=== PATIENT | male | born 2000 | race Caucasian/White ===

== ENCOUNTER → 2021-02-26 08:30 | Outpatient (BNVA) | payer OTHER, SELFPAY | PROVIDERS: Visit Provider Physician Assistant Medical | DX: S61.412A Laceration without foreign body of left hand, initial encounter (principal); W26.9XXA Contact with unspecified sharp object(s), initial encounter | CPT/HCPCS: 12001; 99203 ==

== ENCOUNTER → 2021-02-28 10:32 | Outpatient (BNVA) | payer OTHER, SELFPAY | PROVIDERS: Visit Provider Physician Assistant Medical | DX: S61.412A Laceration without foreign body of left hand, initial encounter (principal); W26.0XXA Contact with knife, initial encounter | CPT/HCPCS: 99213 ==

== ENCOUNTER → 2021-03-05 08:20 | Outpatient (BNVA) | payer OTHER, SELFPAY | PROVIDERS: Visit Provider Physician Assistant Medical | DX: S61.412A Laceration without foreign body of left hand, initial encounter (principal); W26.9XXA Contact with unspecified sharp object(s), initial encounter; Z48.02 Encounter for removal of sutures | CPT/HCPCS: 99212; 99213 ==

== ENCOUNTER 2023-09-17 12:52 | Outpatient (AMB) | payer OTHER, SELFPAY ==
--- NOTE | 2023-09-17 13:03 | MHC.PC.OV ---
Vital Signs 09/17/23 13:04 Height 5 ft 7 in Weight 231 lb 6 oz BMI 36.2 BP 124/82 Blood Pressure Location Lt brachial Position Sitting Pulse 92 Pulse Source Pulse Oximeter Pulse Oximetry (%) 99 Oxygen Delivery Method Room Air Intake Visit Reasons: New patient-Requesting physical Intake Note: Pt is here to est care Allergies No Known Allergies Allergy (Verified 09/17/23 13:06) Medication List - Last Reconciled 09/17/23 by FLORI Greer epinephrine 1 mg IM DAILY Tobacco use date assessed: 09/17/23 Dental Screening Dental Screen Date: 09/17/23 Did you have a dental visit in the last 12 months?: Yes Did you have a dental problem in the last 6 months where you did not have access to dental care?: No Was dental information given to patient?: Patient has dentist HPI New patient-Requesting physical HPI Details New pt is here for a PE. Will order labs. Pt c/o increased fatigue. He reports not sleeping well at night. ? sleep apnea. Will refer for sleep study. [facility] Family History Maternal Uncle Substance use disorder Paternal Uncle Substance use disorder Social History Housing: House Patient Tobacco Use Status: Former Tobacco user Quit Date: quit 2 years ago e-Cigarette/Vaping Use: Former Use Second Hand Smoke Exposure: No service: No Current occupational status: employed Current occupation: [employer] Current occupational exposures/hazards: No Cognitive needs: No Hearing needs: No Vision needs: No Questionnaire PHQ-9 Over the last 2 weeks, how often have you been bothered by any of the following problems? 1. Little interest or pleasure in doing things: not at all 2. Feeling down, depressed, or hopeless: not at all 3. Trouble falling or staying asleep, or sleeping too much: not at all 4. Feeling tired or having little energy: several days 5. Poor appetite or overeating: not at all 6. Feeling bad about yourself - or that you are a failure or have let yourself or your family down: not at all 7. Trouble concentrating on things, such as reading the newspaper or watching television: not at all 8. Moving or speaking so slowly that other people could have noticed. Or the opposite - being so fidgety or restless that you have been moving around a lot more than usual: not at all 9. Thoughts that you would be better off or of hurting yourself in some way: not at all Total score: 1 Depression Screening Interpretation: Negative Depression Screening Done: Yes 82669 - PHQ-9 Billing: Yes Source: Developed by Drs. Moses Vera, Rupal Edge, Kai Ribera and colleagues, with an educational stephie from [employer]. Thrive Questionnaire Date Thrive assessed: 09/17/23 I am a: Patient What is your living situation today?: I have a steady place to live Within the past 12 months, did the food you bought not last and you didn't have the money to get more?: Never true Within the past 12 months, did you worry whether your food would run out before you got money to buy more?: Never true Do you have trouble paying for medicines?: No Do you have trouble getting transportation to medical appointments?: No Do you have trouble paying your heating and electricity bill?: No Do you have trouble taking care of your child, family member or friend?: No Do you have trouble with day-to-day activities such as bathing, preparing meals, shopping, managing finances, etc.?: No Are you currently unemployed and looking for a job?: No Are you interested in more education?: No Currently or been in a relationship where the following occur: no concerns reported THRIVE Score: 0 AUDIT C Alcohol Use Questionnaire (AUDIT-C) 1. How often do you have a drink containing alcohol?: Monthly or less 2. How many drinks containing alcohol do you have on a typical day when you are drinking?: 1 or 2 3. How often do you have six or more drinks on one occasion?: Never Total Score: 1 DYLON-7 AMB Questionnaire DYLON-7 Date DYLON - 7 assessed: 09/17/23 Feeling nervous, anxious, or on edge: 0 = Not at all Not being able to stop or control worryin = Not at all Worrying too much about different things: 0 = Not at all Trouble relaxin = Not at all Being so restless that it is hard to sit still: 0 = Not at all Becoming easily annoyed or irritable: 0 = Not at all Feeling afraid as if something awful might happen: 0 = Not at all Total DYLON-7 score (0-4 normal; 5-9 mild; 10-14 moderate; 15-21 severe): 0 Source: Developed by Drs. Moses Vera, Rupal Edge, Kai Ribera and colleagues, with an educational stephie from [employer]. Review of Systems Const Denies chills and Denies fever(s) Eyes Denies blurry vision ENT Denies vertigo, Denies dizziness and Denies sore throat Card Denies chest pain at rest, Denies chest pain with activity, Denies diaphoresis, Denies dyspnea and Denies dyspnea on exertion Resp Denies cough, Denies dyspnea, Denies dyspnea on exertion and Denies wheezing GI Denies abdominal pain, Denies melena, Denies hematochezia, Denies constipation, Denies diarrhea and Denies loose stools Denies hematuria Musc Denies numbness and Denies tingling Skin/Breast Denies lesions Neuro Denies vertigo, Denies dizziness, Denies numbness and Denies tingling Psych Denies anxiety, Denies depression, Denies homicidal ideation, Denies suicidal ideation and Denies other (substance abuse) Aller/Immun Denies wheezing Physical exam (Primary Care) Vital Signs: Last Vital Signs Pulse 92 09/17/23 13:04 BP 124/82 09/17/23 13:04 Pulse Ox 99 09/17/23 13:04 Oxygen Delivery Method Room Air 09/17/23 13:04 BMI result Body Mass Index 36.2 Tobacco/Smoking Status: Tobacco use Status Tobacco use date assessed 09/17/23 09/17/23 13:10 Patient Tobacco Use Status Former Tobacco user 09/17/23 13:10 e-Cigarette/Vaping Use Former Use 09/17/23 13:10 Depression Screening Interpretation: Negative Currently or been in a relationship where the following occur: no concerns reported Const General: cooperative Nutritional Appearance: obese Orientation/consciousness: patient oriented x3 HENMT Head: Yes normal to inspection, Yes normocephalic and Yes atraumatic Ears: TM's normal bilaterally Eyes General: appearance normal, both eyes and all related structures Alignment and Position: alignment normal and position normal Neck Neck: Yes normal visual inspection and Yes no lymphadenopathy Thyroid: Thyroid normal Resp Effort & Inspection: normal respiratory effort Auscultation: clear to auscultation bilaterally Cardio Rate: regular rate Rhythm: regular rhythm Heart sounds: S1 normal heart sound present, S2 normal heart sound present and no murmurs GI Palpation (GI): Soft to palpation and nontender Auscultation: normal bowel sounds Male General Exam: Yes normal external exam Penis: normal penis Scrotum: scrotum normal, testes descended bilaterally and no inguinal hernias Testes: no testicular mass Skin Rashes: no rashes Neuro General: patient oriented x3, moves all extremities, no focal motor deficits and deep tendon reflexes 2+ bilaterally Romberg Test: Negative Psych Appearance: grossly normal Mental Status: mental status grossly normal Speech and movement: Normal speech and movement present Affect: normal affect Attitude: cooperative Thought process: Normal thought process present Thought content: Normal thought content present Insight: Good insight present (Psych) Judgement: Good judgement present (Psych) Assessment and Plan Assessment & Plan (1) Physical exam: Code(s): Z00.00 - Encounter for general adult medical examination without abnormal findings Plan: Labs ordered (2) Fatigue: Code(s): R53.83 - Other fatigue Plan: labs ordered, referred to sleep medicine Plan The patient agreed to the use of a district medical examiner for this encounter. Scribed for FLORI Godinez by Mari Pacheco district medical examiner, on 09/17/2023 at 13:10 EST. Orders: Orders Complete Blood Count Auto Diff Today Z00.00 - Encounter for general adult medical examination without abnormal findings TSH reflex Free T4 Today Z00.00 - Encounter for general adult medical examination without abnormal findings UA CC w/rflx Micro + Cult Today Z00.00 - Encounter for general adult medical examination without abnormal findings Comprehensive [place]. Panel Fast Today Z00.00 - Encounter for general adult medical examination without abnormal findings Lipid Panel Today Z00.00 - Encounter for general adult medical examination without abnormal findings Referrals Sleep Medicine Referral R53.83 - Other fatigue Coding Level of Care Code New Pt Prev Care 18-39yr([id number] Diagnoses Physical exam Z00.00 Fatigue R53.83
[2023-09-17 13:04] VITALS: BP 124/82; PULSE 92; O2SAT 99; BMI 36.2
== END 2023-09-17 14:03 | disposition home or self-care (01) ==
PROVIDERS: PCP Nurse Practitioner Family; Visit Provider Nurse Practitioner Family
DX: Z00.00 Encounter for general adult medical examination without abnormal findings (principal); R53.83 Other fatigue
CPT/HCPCS: 99385

== ENCOUNTER 2023-09-29 06:07 | Outpatient (REF) | payer OTHER, SELFPAY ==
[2023-09-29 11:40] LABS: MANUAL DIFF FLAG NO
[2023-09-29 11:49] LABS: Basophils Absolute Auto 0.1 X10*3/uL (0.0-0.2); Basophils Percent Auto 0.8 % (0-2); Eosinophils Absolute Auto 0.3 X10*3/uL (0.0-0.4); Eosinophils Percent Auto 4.2 % (0-4); Hematocrit 45.8 % (42.0-52.0); Hemoglobin 15.7 g/dl (14.0-18.0); Imm Gran Abs Auto 0.02 X10*3/uL (0.00-0.03); Imm Gran Pct Auto 0.3 % (0.0-0.4); Lymphocytes Absolute Auto 1.8 X10*3/uL (1.2-4.9); Lymphocytes Percent Auto 23.9 % (20-40); Mean Corpuscular HGB Conc 34.3 g/dl (31.0-36.0); Mean Corpuscular Hemoglobin 28.7 pg (27.0-33.0); Mean Corpuscular Volume 83.7 fL (80.0-98.0); Mean Platelet Volume 9.8 fL (9.4-12.4); Monocytes Absolute Auto 0.8 X10*3/uL (0.1-1.2); Monocytes Percent Auto 9.7 % (2-11); Neutrophils Absolute Auto 4.7 x10*3/uL (2.0-8.3); Neutrophils Percent Auto 61.1 % (45-73); Platelet Count 330 X10*3/uL (160-400); Red Blood Count 5.47 X10*6/uL (4.60-5.80); Red Cell Distribution Width 12.7 % (11.0-16.0); White Blood Count 7.7 X10*3/uL (4.8-10.8)
[2023-09-29 11:53] LABS: Appearance Urine Clear; Color Urine Yellow; Glucose Urine UA Negative (Negative); Leukocyte Esterase Urine Negative (Negative); Nitrite Urine Negative (Negative); PH 5.5 (5.0-9.0); Urine Blood Negative (Negative); Urine Ketones Negative (Negative); Urine Protein Negative (Neg-Trace)
[2023-09-29 12:21] LABS: Alanine Aminotransferase 26 U/L (0-40); Albumin Level 4.6 g/dL (3.5-5.0); Alkaline Phosphatase 63 U/L (39-117); Anion Gap 12 (12-20); Aspartate Amino Transferase 25 U/L (5-37); Bilirubin Total 1.6 mg/dL (0.0-1.0); Blood Urea Nitrogen 15 mg/dL (9-16); Carbon Dioxide 27 mmol/L (22-29); Chloride 104 mmol/L (96-108); Cholesterol 193 mg/dL (<200); Estimated Glomerular Filt Rate > 60; Glucose Fasting 79 mg/dL (60-99); HDL Cholesterol 40 mg/dL (>40); LDL Cholesterol Calculated 132 mg/dL (<100); Potassium 3.9 mmol/L (3.3-5.1); Sodium 139 mmol/L (135-145); TSH reflex Free T4 1.44 uIU/mL (0.32-4.0); Total Protein 7.5 g/dL (6.5-8.0); Triglycerides 109 mg/dL (<150)
== END 2023-09-29 06:08 | disposition home or self-care (01) ==
LOC: HO.HMGCLDS 06:07
PROVIDERS: PCP Nurse Practitioner Family; Visit Provider Nurse Practitioner Family
DX: Z00.00 Encounter for general adult medical examination without abnormal findings (principal); Z13.6 Encounter for screening for cardiovascular disorders
CPT/HCPCS: 36415; 80053; 80061; 81003; 84443; 85025

== ENCOUNTER 2023-10-27 06:01 | Outpatient (REF) | payer OTHER, SELFPAY ==
[2023-10-27 13:20] LABS: Bilirubin Direct 0.3 mg/dL (0.0-0.5); Bilirubin Total 0.7 mg/dL (0.0-1.0)
== END 2023-10-27 06:02 | disposition home or self-care (01) ==
LOC: HO.HMGCLDS 06:01
PROVIDERS: PCP Nurse Practitioner Family; Visit Provider Nurse Practitioner Family
DX: R17 Unspecified jaundice (principal)
CPT/HCPCS: 36415; 82247; 82248

== ENCOUNTER 2023-12-31 08:26 | Outpatient (AMB) | payer OTHER, SELFPAY ==
[2023-12-31 08:38] VITALS: BP 122/78; PULSE 76; O2SAT 98; BMI 36.6
--- NOTE | 2023-12-31 08:38 | A.OFFVIS_ITS ---
Vital Signs 12/31/23 08:38 Height 5 ft 7 in Weight 234 lb BMI 36.6 BP 122/78 Blood Pressure Location Rt brachial Position Sitting Pulse 76 Pulse Source Pulse Oximeter Pulse Oximetry (%) 98 Oxygen Delivery Method Room Air Intake Visit Reasons: INP-Fatigue - CONF w/ address Intake Note: Patient presents for fatigue. patient presents for feeling fatigue has gained some weight not sure if that has anything to do with it,feeling tired all the time. Allergies No Known Allergies Allergy (Verified 12/31/23 08:41) Medication List - Last Reconciled 12/31/23 by SHIVANI Flores epinephrine 1 mg IM DAILY HPI Comments Details: 23-yr-old female presents for new in-person patient visit for sleep consultation. Patient reports difficulty with haze of sleepiness over the last 2 years, which is most noticeable when he is inactive. He states he has had gradual weight gain the last few years. He notes that when he had his wisdom teeth extracted, he need this to be done at a hospital d/t narrow airway. He wonders if neck tightness/posture can cause nocturnal resp s/s- such as sleeping w/ mouth open. 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 Sleep questionnaire: Have you ever been diagnosed with a sleep disorder? No Have you ever had a sleep study in the past? No Have you ever been treated for a sleep disorder? No Do you take medications for a sleep disorder? Has tried melatonin- but really does not have difficulty falling asleep. Do you have difficulty initiating sleep? No Do you have difficulty maintaining sleep? No. Do you wake up tired? yes Do you have daytime tiredness or fatigue? yes Do you easily fall asleep when inactive? yes Do you snore? yes Do you wake up gasping at night? no Do you have episodes of apneas? no Do you have episodes of nocturnal chest pain or dyspnea? can wake up SOB Do you have bruxism? No Do you have headaches upon awakening? No Do you wake up with dry mouth or throat? No Do you have GERD? certain foods. Do you have nocturia? No Do you have nocturnal leg cramps? No Do you have symptoms of restless legs? 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 Has talked in his sleep Do you have sleep paralysis? No Do you have drop attacks? No Do you ever have hypnogenic hallucinations? No. Only dreams when he takes a daytime nap, however during a nap he is aware of somethings going on around him but still dreaming- feels the dream occur toward the end of the nap. Hypersomnolence questionnaire: Have you ever had episodes of sudden weakness? No Have you ever had episodes of sudden weakness associated with strong emotions? No Sleep hygiene questionnaire: What is your usual sleep routine? Usual bedtime is at 9:30-10:30pm- sometimes earlier; Usual wake-up time is at 5-6am. Was sleeping longer on weekends- but this made him feel worse Do you take naps? Tries not too- feels worse when he naps Is your sleep environment cool, dark, and quiet? Yes Do you exercise? Golfs, weight training, walks Do you take caffeine or other stimulants? 4 cups of coffee and energy drink at times- latest intake 4pm- smaller cup of coffee. Do you use electronics in bed? May use his phone- but will fall asleep after using it or while using his phone. 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 [facility] Surgical History (Updated 12/31/23 @ 08:42 by EFREN Zhang) [place] teeth removed Family History Maternal Uncle Substance use disorder Paternal Uncle Substance use disorder Social History Housing: House Patient Tobacco Use Status: Former Tobacco user e-Cigarette/Vaping Use: Former Use Second Hand Smoke Exposure: No service: No Current occupational status: employed Current occupation: [employer] Current occupational exposures/hazards: No Cognitive needs: No Hearing needs: No Vision needs: No Physical Exam Vital Signs: Last Vital Signs Pulse 76 12/31/23 08:38 BP 122/78 12/31/23 08:38 Pulse Ox 98 12/31/23 08:38 Oxygen Delivery Method Room Air 12/31/23 08:38 BMI result Body Mass Index 36.6 Const General: no acute distress Orientation/consciousness: patient oriented x3 HEENT Other: Mallampati stage 3-4 Resp Effort & Inspection: normal respiratory effort and able to speak in complete sentences Auscultation: clear to auscultation bilaterally Cardio Rate: regular rate Rhythm: regular rhythm Heart sounds: S1 normal heart sound present and S2 normal heart sound present Neuro Other: Bilateral cervical tightness General: patient oriented x3 Psych Mental Status: mental status grossly normal Speech and movement: Clear speech present Attitude: cooperative Assessment & Plan Assessment & Plan (1) Excessive daytime sleepiness: Code(s): G47.19 - Other hypersomnia Category: Medical (2) Snoring: Code(s): R06.83 - Snoring Category: Medical (3) Sleep difficulties: Code(s): G47.9 - Sleep disorder, unspecified Category: Medical (4) Muscle spasm: Code(s): M62.838 - Other muscle spasm Category: Medical Plan Pt is advised to undergo sleep study to assess for sleep apnea: HST. Check labs for common etiologies of fatigue, sleepiness, and muscle spasm/tightness. Reviewed general tips to optimize sleep hygiene and sleep quality. Increase stretching/ROM and core/posture exercises- consider trying yoga or pilates type exercises in addition to his strength training exercises. Will f/u with pt after study to discuss results and appropriate treatment options. Pt to call with any worsening concerns or questions. Pt seen in c/w Dr Iwona Balderas. Orders: Orders TSH reflex Free T4 Today G47.19 - Other hypersomnia, M62.838 - Other muscle spasm, R53.83 - Other fatigue Vitamin B12 and Folate Today G47.19 - Other hypersomnia, G47.9 - Sleep disorder, unspecified, M62.838 - Other muscle spasm, R06.83 - Snoring, R53.83 - Other fatigue Vitamin D 25-OH (D2 and D3) Today G47.19 - Other hypersomnia, G47.9 - Sleep disorder, unspecified, M62.838 - Other muscle spasm, R06.83 - Snoring, R53.83 - Other fatigue RT home sleep study Today G47.19 - Other hypersomnia, G47.9 - Sleep disorder, unspecified, M62.838 - Other muscle spasm, R06.83 - Snoring, R53.83 - Other fatigue Ferritin Today G47.19 - Other hypersomnia, G47.9 - Sleep disorder, unspecified, M62.838 - Other muscle spasm, R06.83 - Snoring, R53.83 - Other fatigue Coding Level of Care Code New Pt Level 4 (97528) Diagnoses Excessive daytime sleepiness G47.19 Snoring R06.83 Sleep difficulties G47.9 Muscle spasm M62.838 [place] Sleepiness Scale Questions Sitting and reading: moderate chance of dozing Watching TV: high chance of dozing Sitting inactive in a theater, movie etc.: moderate chance of dozing As a passenger in a car for an hour without break: moderate chance of dozing Lying down in the afternoon when circumstances permit: moderate chance of dozing Sitting and talking to someone: would never doze Sitting quietly after lunch without alcohol: moderate chance of dozing In a car, while stopped for a few minutes in the traffic: would never doze ESS < 10: normal, ESS > 12: pathologic: 13
== END 2023-12-31 09:30 | disposition home or self-care (01) ==
PROVIDERS: PCP Nurse Practitioner Family; Visit Provider Nurse Practitioner Family
DX: G47.19 Other hypersomnia (principal); R06.83 Snoring; G47.9 Sleep disorder, unspecified; M62.838 Other muscle spasm
CPT/HCPCS: 99204

== ENCOUNTER → 2023-12-31 08:26 | Outpatient (BNVA) | payer OTHER, SELFPAY | PROVIDERS: PCP Nurse Practitioner Family; Visit Provider Nurse Practitioner Family ==

== ENCOUNTER 2023-12-31 09:29 | Outpatient (REF) | payer OTHER, SELFPAY ==
[2023-12-31 18:12] LABS: Ferritin 223 ng/mL (20-250); TSH reflex Free T4 0.99 uIU/mL (0.32-4.0)
[2023-12-31 18:21] LABS: Folate 9.3 ng/mL (> or = 4.0); Vitamin B12 677 pg/mL (200-900)
[2024-01-05 13:12] LABS: Vitamin D 25-OH, D2 <4 ng/mL; Vitamin D 25-OH, D3 23 ng/mL; Vitamin D 25-OH, Total 23 ng/mL (30-100)
== END 2023-12-31 09:30 | disposition home or self-care (01) ==
LOC: HO.HKASLDS 09:29
PROVIDERS: Visit Provider Nurse Practitioner Family
DX: R53.83 Other fatigue (principal); G47.19 Other hypersomnia; G47.9 Sleep disorder, unspecified; R06.83 Snoring; M62.838 Other muscle spasm
CPT/HCPCS: 36415; 82306; 82607; 82728; 82746; 84443

== ENCOUNTER → 2024-01-11 12:51 | Outpatient (REF) | payer OTHER, SELFPAY | LOC: HO.SL 12:51 | PROVIDERS: PCP Nurse Practitioner Family; Visit Provider Nurse Practitioner Family | DX: Z13.89 Encounter for screening for other disorder (principal) ==

== ENCOUNTER 2024-07-29 08:31 | Outpatient (AMB) | payer OTHER, SELFPAY ==
[2024-07-29 08:37] VITALS: BP 122/72; PULSE 81; O2SAT 98; BMI 38.4
--- NOTE | 2024-07-29 08:37 | A.OFFVIS_ITS ---
Vital Signs 07/29/24 08:37 Height 5 ft 7 in Weight 245 lb 8 oz BMI 38.4 BP 122/72 Blood Pressure Location Rt brachial Position Sitting Pulse 81 Pulse Source Pulse Oximeter Pulse Oximetry (%) 98 Oxygen Delivery Method Room Air Intake Visit Reasons: 7 month f/u Accompanied by: Self / Same As Patient Allergies No Known Allergies Allergy (Verified 07/29/24 08:40) Medication List - Last Reconciled 07/29/24 by Terrance Regalado PA-C cholecalciferol (vitamin D3) 1,250 mcg PO QWEEK 14 weeks epinephrine 1 mg IM DAILY HPI Comments Details: 23-yr-old female presents for new in-person patient visit for sleep co nsultation. Patient reports difficulty with haze of sleepiness over the last 2 years, which is most noticeable when he is inactive. He states he has had gradual weight gain the last few years. He notes that when he had his wisdom teeth extracted, he need this to be done at a hospital d/t narrow airway. He wonders if neck tightness/posture can cause nocturnal resp s/s- such as sleeping w/ mouth open. 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 Sleep questionnaire: Have you ever been diagnosed with a sleep disorder? No Have you ever had a sleep study in the past? No Have you ever been treated for a sleep disorder? No Do you take medications for a sleep disorder? Has tried melatonin- but really does not have difficulty falling asleep. Do you have difficulty initiating sleep? No Do you have difficulty maintaining sleep? No. Do you wake up tired? yes Do you have daytime tiredness or fatigue? yes Do you easily fall asleep when inactive? yes Do you snore? yes Do you wake up gasping at night? no Do you have episodes of apneas? no Do you have episodes of nocturnal chest pain or dyspnea? can wake up SOB Do you have bruxism? No Do you have headaches upon awakening? No Do you wake up with dry mouth or throat? No Do you have GERD? certain foods, not food related, more random. Do you have nocturia? No Do you have nocturnal leg cramps? No Do you have symptoms of restless legs? 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 Has talked in his sleep Do you have sleep paralysis? No Do you have drop attacks? No Do you ever have hypnogenic hallucinations? No. Only dreams when he takes a daytime nap, Hypersomnolence questionnaire: Have you ever had episodes of sudden weakness associated with strong emotions? No Sleep hygiene questionnaire: What is your usual sleep routine? Usual bedtime is at 9:30-10:30pm- sometimes earlier; Usual wake-up time is at 5-6am. Was sleeping longer on weekends- but this made him feel worse, more tired. Do you take naps? Tries not too- feels worse when he naps Is your sleep environment cool, dark, and quiet? Yes Do you exercise? Golfs, weight training, walks Do you take caffeine or other stimulants? 2-6 cups of coffee and energy drink at times- last intake noon- smaller cup of coffee. Do you use electronics in bed? May use his phone- but will fall asleep after using it or while using his phone. What is your work schedule? 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 [facility] Surgical History [place] teeth removed Family History Maternal Uncle Substance use disorder Paternal Uncle Substance use disorder Social History Housing: House Patient Tobacco Use Status: Former Tobacco user e-Cigarette/Vaping Use: Former Use Second Hand Smoke Exposure: No service: No Current occupational status: employed Current occupation: [employer] Current occupational exposures/hazards: No Cognitive needs: No Hearing needs: No Vision needs: No Review of Systems Const All systems reviewed & are unremarkable except as noted in HPI and below ENT Reports Normal hearing present Neuro Reports Normal hearing present Physical Exam Vital Signs: Last Vital Signs Pulse 81 07/29/24 08:37 BP 122/72 07/29/24 08:37 Pulse Ox 98 07/29/24 08:37 Oxygen Delivery Method Room Air 07/29/24 08:37 BMI result Body Mass Index 38.4 Const General: cooperative, comfortable and no acute distress Nutritional Appearance: well nourished and overweight Orientation/consciousness: patient oriented x3 HEENT Face and sinus: Yes face symmetric Throat: Yes other ([place] score of 4) Eyes Pupils: Equal, round and reactive pupils present Neck Neck: Yes full ROM and Yes supple Resp Effort & Inspection: normal respiratory effort and able to speak in complete sentences Neuro General: patient oriented x3 and moves all extremities Cranial nerves: Yes CN's II-XII intact bilaterally, Yes Facial sensation int act/muscles of mastication intact, Yes Equal, round and reactive pupils present, Yes Normal accommodation reflex present, Yes Bilaterally intact EOM present, Yes Nystagmus not present, Yes Normal facial strength present, Yes Midline tongue present, Yes Normal hearing present, Yes Ability to bilaterally rotate head present and Yes Ability to bilaterally elevate shoulders present Cognition (Neuro): normal cognition Motor exam (neuro): 5/5 motor strength present throughout and Normal motor muscle tone present throughout Deep tendon reflexes (DTR's): Right triceps reflex intensity grade: 2+, Left triceps reflex intensity grade: 2+, Rt Biceps (C5, C6): 2+, Left biceps reflex intensity grade: 2+, Right brachioradialis reflex intensity grade: 2+, Left brachioradialis reflex intensity grade: 2+, Right patellar reflex intensity grade: 2+ and Left patellar reflex intensity grade: 2+ Psych Appearance: grossly normal Mental Status: mental status grossly normal Speech and movement: Normal speech and movement present Assessment & Plan Assessment & Plan (1) Fatigue: Code(s): R53.83 - Other fatigue Category: Medical Qualifiers: Fatigue type: chronic, unspecified Qualified Code(s): R53.82 - Chronic fatigue, unspecified (2) Sleep difficulties: Code(s): G47.9 - Sleep disorder, unspecified Category: Medical (3) Snoring: Code(s): R06.83 - Snoring Category: Medical Plan Snoring with Chronic and Excessive Daytime Fatigue Will send him for HST and evaluate Labs B12 and folate / VIT D and Thyroid Orders: Orders RT home sleep study Today G47.9 - Sleep disorder, unspecified, R53.83 - Other fatigue Vitamin B12 and Folate Today G47.9 - Sleep disorder, unspecified, R53.83 - Other fatigue Coding Level of Care Code Tele New Pt Level 3 (59552) Diagnoses Chronic fatigue R53.82 Fatigue type: chronic, unspecified Sleep difficulties G47.9 Snoring R06.83
--- OUTSIDE RECORDS SUMMARY | 2024-07-29 08:45 | XMS_ITS ---
Author Name [facility] Organization Unknown History of Medication Use Medication Directions Dispensed Refills Start Date End Date Stat cephalexin 500 mg capsule TAKE 1 CAPSULE BY MOUTH THREE TIMES A DAY DIRECTED TAKE 1 CAPSULE BY MOUTH THREE TIMES A DAY DIRECTED 01/10/2022 completed epinephrine 0.3 mg/0.3 mL injection, auto-injector epinephrine 0.3 mg/0.3 mL injection, auto-injector 01/10/2022 completed None recorded. (No additional sig information) 01/10/2022 completed Problems Problem Status Onset Date Problem Type Date of Resoluti on Source Obesity active 2017-10-08 ProblemAct CTHLPVP Allergic rhinitis active ProblemAct C THLPVP Learning difficulties active 2016-09-29 ProblemAct CTHLPVP
--- OUTSIDE RECORDS SUMMARY | 2024-07-29 08:45 | XMS_ITS | Data Portability ---
Author Organization [place] - [facility], [facility] Address [address] [place] [id number] Assessment Encounter Date Assessment Date Assessment LastModified by Organization Details LastModified Time 10/11/2018 10/11/2018 Healthy 18 year old. 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 Nl dev Learning disorder- doing fine in school mild seasonal allergies Inc BMI- disc healthy lifestyle at length jyunis Not available 10/03/2019 12:25:06 01/01/2021 01/01/2021 Healthy 20 year old. Nl dev Learning disorder- doing fine in school Inc BMI- disc healthy lifestyle at length- weight better- eating better and more active jyunis Not available 01/01/2021 09:29:45 01/02/2022 01/02/2022 bloody stool- likely hemmorroid- no signs of systemic symptoms. willl see if resolves next couple days. George to call on thursday to report Uri- Symptomatic care.?? Call if worse/ not improving or with any concerns jyunis Not available 01/02/2022 19:41:41 Plan of Treatment Reminders Order Date Submit Date Provider Last Modified By Organization Details Last Modified Time Details Appointments None recorded . Lab lipid panel, blood 018 10/13/19 18 [facility], [address] [place] [address], [phone], 8 10:08:58 glucose, QN [mass/vo lume], serum or plasma 018 10/13/19 18 [facility], [address] [place], [address], 8 18:20:02 ALT (alanine aminotra nsferase ), serum or plasma 018 10/13/19 18 [facility], [address], [place], [address], 8 18:20:01 CT + NG DNA, PCR, urine 019 10/12/19 19 [facility], [address] [place] [address], [phone], 9 11:42:07 CT + NG DNA, PCR, urine 020 10/03/19 20 [facility], [address], [place], [address], 0 13:38:18 CT + NG DNA, PCR, urine 021 01/02/20 21 [facility], [address] [place] [address], [phone], 1 10:24:04 Referral None recorded . Procedures None recorded . Surgeries None recorded . Imaging None recorded . Medication Orders None recorded . Patient TargetsNo targets recorded. Patient Instructions Encounter Date Encounter Id Patient Instructions Last Modified By Organization Details Last Modified Time 10/12/2017 [id number] patient health questionnaire modified for adolescents* Not available 10/12/2017 10:01:13 immunization: wh at you need to know Not available 10/12/2017 10:01:13 mom declines flu vaccine; life issues/balance/saf ety; george needs to embrace need for healthier eating and weight loss; hard thing to do and no easy solutions or tricks to accomplish Not available 10/12/2017 10:01:02 10/11/2018 [id number] Learning About H ow to Make Healthy Changes in Your Child's Diet jyunis Not available 10/11/2018 10:17:40 5210 program - 5 fruits & veggies jyunis Not available 10/11/2018 10:17:39 5210 program - 1 hour of exercise jyunis Not available 10/11/2018 10:17:39 patient health questionnaire depression assessment* jyunis Not available 10/11/2018 10:43:46 immunization: wh at you need to know jyunis Not available 10/11/2018 10:17:40 10/03/2019 [id number] program - 5 fruits & veggies jyunis Not available 10/03/2019 11:15:30 5210 program - 1 hour of exercise jyunis Not available 10/03/2019 11:15:30 patient health questionnaire depression assessment* ZHANE Not available 10/03/2019 11:20:19 immunization: wh at you need to know jyunis Not available 10/03/2019 11:15:30 01/01/2021 [id number] program - 5 fruits & veggies jyunis Not available 01/01/2021 09:35:00 5210 program - 1 hour of exercise jyunis Not available 01/01/2021 09:35:00 patient health questionnaire depression assessment* jyunis Not available 01/01/2021 09:35:00 immunization: wh at you need to know jyunis Not available 01/01/2021 09:35:00 01/02/2022 [id number] upper respirator y infection (cold): care instructions jyunis Not available 01/02/2022 19:42:09 Reason for Referral None Reported. Results Created Date Observation Date Name Description Value Unit Range Abnormal Flag Note LastModifiedBy Organization Detail LastModifiedTime 01/01/2021 patie nt healt h quest ionna lorena depre ssion asses sment * PHQ-9 negati ve Not Available [facility] [address] [place] [address], [phone], 01/01/2021 09:18:06 10/11/2018 patie nt healt h quest ionna lorena depre ssion asses sment * PHQ-9 negati ve Not Available [facility] [address] [place] [address], [place], [phone], 10/11/2018 09:39:09 10/12/2017 patie nt healt h quest jac carrillo modgeorgia ied for adole scent s* PHQ-9 negati ve Not Available [facility] [address] [place], [address], 10/12/2017 09:36:15 10/17/19 18 10/16/2017 ALT (omero ine amino trans feras e), serum or plasm a ALT 22 U/L (0-41) Not Available [facility] [address] [place], [address], 10/16/2017 18:20:01 10/17/19 18 10/16/2017 gluco se, QN [mass /volu me], serum or plasm a glucose 86 mg/dL (70-99 ) FASTI NG Not Available [facility] [address] [place], [address], 10/16/2017 18:20:02 10/17/19 18 10/16/2017 lipid panel , serum cholesterol, total 165 mg/dL (<170) Not Available [facility] [address] [place], [address], 10/16/2017 18:20:03 10/17/19 18 10/16/2017 lipid panel , serum triglyceride 197 mg/dL (<90) high Not Available [facility] [address] [place], [address], 10/16/2017 18:20:03 10/17/19 18 10/16/2017 lipid panel , serum HDL chol 35 mg/dL (>45) low Not Available [facility] [address] [place], [address], 10/16/2017 18:20:03 10/17/19 18 10/16/2017 lipid panel , serum LDL cholesterol, calculated 91 mg/dL (0-109 ) Not Available [facility] [address] [place], [address], 10/16/2017 18:20:03 10/17/19 18 10/16/2017 lipid panel , serum non HDL cholesterol (calc) 130 mg/dL (<120) high Not Available [facility] [address], [place], [address], 10/16/2017 18:20:03 10/12/19 19 10/12/2018 CT + NG DNA, PCR, urine urine chlamydia amp probe (neg) normal NEGAT SONIA No Chlam ydia Trach omati s RNA detec marcus in this patie nt's sampl e (REFE RENCE RANGE /NORM AL VALUE : NOT DETEC MARCUS) Note: This test uses trans cript ion- media marcus ampli ficat ion metho d to detec t rRNA from C. Trach omati s Not Available [facility] [address], [place], [address], 10/12/2018 13:45:25 10/12/19 19 10/12/2018 CT + NG DNA, PCR, urine urine GC amp probe (neg) normal NEGAT SONIA No Neiss eria Gonor rhoea e RNA detec marcus in this patie nt's sampl e (REFE RENCE RANGE /NORM AL VALUE : NOT DETEC MARCUS) NOTE: This test uses trans cript ion-m ediat ed ampli ficat ion metho d to detec t rRNA from N.Daniel orrho eae. A negat sonia resul t does not precl ude infec tion. In the case of a negat sonia urine resul t, testi ng of an endoc ervic al(fe male) or ureth ral (male ) speci men is recom edwin d if there is high clini damian suspi cion of infec tion. Due to very high sensi tivit y of Nucle ic Acid Ampli ficat ion Test, false posit sonia resul ts may occur . There fore, speci men handl ing is extre jarvis impor tant. In patie nts in whom the disea se is unlik elizabeth, addit ional sampl e for testi ng shoul d be consi dered after an initi al posit sonia resul t. The perfo rmanc e sherrill cteri stics of this test have not been evalu ated in child [place]. The Aptim a Combo 2 assay is not inten ded for the evalu ation of suspe cted sexua l abuse or for other medic o-leg al indic ation s. The order ing provi wesley shoul d asses s if the patie nt had conse nsual sex witho ut risk of sexua l abuse . [facility] if neede d. Conta ct phone numbe r [phone]. Thera peuti c failu re or succe ss canno t be deter mined with the Aptim a Combo 2 assay since nucle ic acid may persi st follo wing appro priat e antim icrob ial thera py. The Cente rs for Disea se Contr ol and Preve ntion ([facility]) recom mends confi rmato ry retes ting using cultu re or a diffe rent nucle ic acid ampli ficat ion test when posit sonia resul ts occur , if indic ated. Not Available [facility] [address], [place], [address], 10/12/2018 13:45:25 10/03/19 20 10/04/2019 CT + NG DNA, PCR, urine urine chlamydia amp probe (neg) normal NEGAT SONIA No Chlam ydia Trach omati s RNA detec marcus in this patie nt's sampl e (REFE RENCE RANGE /NORM AL VALUE : NOT DETEC MARCUS) Note: This test uses trans cript ion- media marcus ampli ficat ion metho d to detec t rRNA from C. Trach omati s Not Available [facility] [address], [place], [address], 10/04/2019 13:38:18 10/03/1910/04/2019 CT + NG DNA, PCR, urine urine GC amp probe (neg) normal NEGAT SONIA No Neiss eria Gonor rhoea e RNA detec marcus in this patie nt's sampl e (REFE RENCE RANGE /NORM AL VALUE : NOT DETEC MARCUS) NOTE: This test uses trans cript ion-m ediat ed ampli ficat ion metho d to detec t rRNA from N.Daniel orrho eae. A negat sonia resul t does not precl ude infec tion. In the case of a negat sonia urine resul t, testi ng of an endoc ervic al(fe male) or ureth ral (male ) speci men is recom edwin d if there is high clini damian suspi cion of infec tion. Due to very high sensi tivit y of Nucle ic Acid Ampli ficat ion Test, false posit sonia resul ts may occur . There fore, speci men handl ing is extre jarvis impor tant. In patie nts in whom the disea se is unlik elizabeth, addit ional sampl e for testi ng shoul d be consi dered after an initi al posit sonia resul t. The perfo rmanc e sherrill cteri stics of this test have not been evalu ated in [place]. The Aptim a Combo 2 assay is not inten ded for the evalu ation of suspe cted sexua l abuse or for other medic o-leg al indic ation s. The order ing provi wesley shoul d asses s if the patie nt had conse nsual sex witho ut risk of sexua l abuse . [facility] if neede d. Conta ct phone numbe r . Thera peuti c failu re or succe ss canno t be deter mined with the Aptim a Combo 2 assay since nucle ic acid may persi st follo wing appro priat e antim icrob ial thera py. The Cente rs for Disea se Contr ol and Preve ntion ([facility]) recom mends confi rmato ry retes ting using cultu re or a diffe rent nucle ic acid ampli ficat ion test when posit sonia resul ts occur , if indic ated. Not Available [facility] [address], [place], [address], 10/04/2019 13:38:18 10/03/19 20 10/03/2019 patie nt healt h quest ionna lorena depre ssion asses sment * PHQ-9 negati ve Not Available [facility] [address] [facility], [place], [address], 10/03/2019 10:57:39 01/02/20 21 01/02/2021 CT + NG DNA, PCR, urine urine chlamydia amp probe (neg) NEGAT SONIA No Chlam ydia Trach omati s RNA detec marcus in this patie nt's sampl e (REFE RENCE RANGE /NORM AL VALUE : NOT DETEC MARCUS) Note: This test uses trans cript ion- media marcus ampli ficat ion metho d to detec t rRNA from C. Trach omati s Not Available [facility] [address], [place], [address], 01/02/2021 08:21:55 01/02/20 21 01/02/2021 CT + NG DNA, PCR, urine urine GC amp probe (neg) NEGAT SONIA No Neiss eria Gonor rhoea e RNA detec marcus in this patie nt's sampl e (REFE RENCE RANGE /NORM AL VALUE : NOT DETEC MARCUS) NOTE: This test uses trans cript ion-m ediat ed ampli ficat ion metho d to detec t rRNA from N.Daniel orrho eae. A negat sonia resul t does not precl ude infec tion. In the case of a negat sonia urine resul t, testi ng of an endoc ervic al(fe male) or ureth ral (male ) speci men is recom edwin d if there is high clini damian suspi cion of infec tion. Due to very high sensi tivit y of Nucle ic Acid Ampli ficat ion Test, false posit sonia resul ts may occur . There fore, speci men handl ing is extre jarvis impor tant. In patie nts in whom the disea se is unlik elizabeth, addit ional sampl e for testi ng shoul d be consi dered after an initi al posit sonia resul t. The perfo rmanc e sherrill cteri stics of this test have not been evalu ated in [place]. The Aptim a Combo 2 assay is not inten ded for the evalu ation of suspe cted sexua l abuse or for other medic o-leg al indic ation s. The order ing provi wesley shoul d asses s if the patie nt had conse nsual sex witho ut risk of sexua l abuse . [facility] if neede d. Conta ct phone numbe r [phone]. Thera peuti c failu re or succe ss canno t be deter mined with the Aptim a Combo 2 assay since nucle ic acid may persi st follo wing appro priat e antim icrob ial thera py. The Cente rs for Disea se Contr ol and Preve ntion ([facility]) recom mends confi rmato ry retes ting using cultu re or a diffe rent nucle ic acid ampli ficat ion test when posit sonia resul ts occur , if indic ated. Not Available [facility] [address], [place], [address], 01/02/2021 08:21:55 01/02/20 21 01/01/2021 CT + NG DNA, PCR, urine Specimen Mikaela marcus in office Not Available [facility] [address] [place] [address], [address], 01/01/2021 09:18:07 Result Notes None recorded. Problems Name Problem SNOMED Code Status Onset Date Resolution Date Notes Provider Name and Address Organization Details Recorded Time Acne 22113670 Completed 10/12/2017 Juan keenan MA [facility] 8 09:50:56 Ankle pain 789150642 Completed 10/16/[address] [facility] 6 13:32:28 Learning difficulti es 450501041 Active 2016 Juan keenan MA [facility] 7 16:18:10 Obesity 509465589 Active [address] [facility] 8 11:02:08 Cellulitis 152901634 Completed 200810/07/2011 Not Available [facility] 3 03:01:32 Viral disease 32600065 Completed 200710/07/2011 Not Available [facility] 3 03:01:32 Eruption 986716656 Completed 200710/07/2011 Not Available [facility] 3 03:01:32 Abnormal weight gain 052821655 Completed 200810/08/[address] 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 Medical Equipment None Reported. Allergies No known drug allergies Medications Name Sig Start Date Stop Date Status Note LastModified by Organization Details LastModified Time ludent chw 1mg f active Not Available Not Available Not Available cephalexin joseline 250/5ml active Not Available Not Available Not Available cetirizine tab 10mg active Not Available Not Available Not Available tretinoin 0.025 % crea active Not Available Not Available Not Available multi-vit/f l chw 1mg active Not Available Not Available No t Available mupirocin oin 2% active Not Available Not Available Not Available amoxicillin 500 mg capsule active Not Available Not Available Not Available prednisone 10 mg tablet 4 tablets po q day for 2 days, 3 tablets po qd for 2 days, 2 tablets po qd for 2 days, 1 tablet po q day for 2 days 04/21 completed Not Available Not Available Not Available fluoride 1 mg (2.2 mg sodium fluoride) chewable tablet Take 1 tablet(s) every day by oral route. 2011 active Not Available Not Available Not Avai lable azithromyci n 250 mg tablet 10/02 completed Not Available Not Available Not Available hydrocodone 5 mg-acetamin ophen 325 mg tablet 10/02 completed Not Available Not Available Not Available tretinoin 0.025 % topical cream Apply by topical route daily. 04/21 completed Not Available Not Available Not Available prednisone 5 mg tablet 03/26 completed Not Available Not Available Not Available acetaminoph en 300 mg-codeine 30 mg tablet active Not Available Not Available Not Available adapalene 0.1 % topical cream Apply 1 applicati on every day by topical route. 09/29 completed Not Available Not Available Not Available cephalexin 500 mg capsule TAKE 1 CAPSULE BY MOUTH THREE TIMES A DAY DIRECTED active Not Available Not Available No t Available Multivitami ns With Fluoride 1 mg chewable tablet 1 po qd 2008 active Not Available Not Available Not Avai lable Tazorac 0.1 % topical gel 10/12 completed Not Available Not Available Not Available epinephrine 0.3 mg/0.3 mL injection, auto-inject or active Not Available Not Available Not Available ibuprofen 600 mg tablet 10/02 completed Not Available Not Available Not Available methylpredn isolone 4 mg tablets in a dose pack 10/02 completed Not Available Not Available Not Available hydrocortis one 2.5 % topical ointment Apply to the affected area(s) by topical route once or twice a day for 7-10 days 04/21 completed Not Available Not Available Not Available ketoconazol e 2 % topical cream APPLY TO AFFECTED AREA TWICE A DAY FOR 14 -21 DAYS 10/11 completed Not Available Not Available Not Available doxycycline hyclate 100 mg tablet 10/08 completed Not Available Not Available Not Available chlorhexidi ne gluconate 0.12 % mouthwash 10/02 completed Not Available Not Available Not Available clindamycin 1.2 % (1 % base)-benzo yl peroxide 5 % topical gel Apply 1 applicati on every day by topical route at bedtime. 10/08 completed Not Available Not Available Not Available Vitals Date Recorded Body height Body mass index (BMI) Percentile per age and sex Body mass index (BMI) Body weight Systolic blood pressure Diastolic blood pressure Provider Name and Address Organization Details Last Updated DateTime 0 170.18 cm 99 % 41 kg/m2 987865. 76 g 120 mm[Hg] 68 mm[Hg] Maile Calloway R.N. [facility] 0 11:03:05 Date Recorded Body height Body mass index (BMI) Percentile per age and sex Body mass index (BMI) Body weight Systolic blood pressure Diastolic blood pressure Provider Name and Address Organization Details Last Updated DateTime 1 170.18 cm 98 % 34.4 kg/m2 52841.8 8 g 122 mm[Hg] 76 mm[Hg] Edyta Mcclure R.N. [facility] 1 09:20:57 Date Recorded Body height Body mass index (BMI) Body weight Systolic blood pressure Diastolic blood pressure Provider Name and Address Organization Details Last Updated DateTime 10/12/2017 169.55 cm 36.2 kg/m2 770528.4 5 g 114 mm[Hg] 70 mm[Hg] Ely davies M.A. [facility] 8 09:39:37 Date Recorded Body height Body mass index (BMI) Percentile per age and sex Body mass index (BMI) Body weight Systolic blood pressure Diastolic blood pressure Provider Name and Address Organization Details Last Updated DateTime 9 170.18 cm 99 % 37 kg/m2 591975. 52 g 120 mm[Hg] 70 mm[Hg] Cuca ortiz C.M.A. [facility] 9 09:44:25 Social History Question Answer Notes LastModified by Organizat ion Details LastModified Time Tobacco Smoking Status Never Smoker Cain Paredes, 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 10/11/2018 Information not available 02/17/2019 Are You Passively Exposed To Smoke? No [email or web address] Information not available 10/23/2014 Sex: Unknown Functional Status None recorded. Mental Status None recorded. Family History Relationship Description Onset Age of this Age Resolved Age Notes LastModified by Organization Details LastModified Time Mother Malignant neoplastic disease previo usly record ed as Cancer [email or web address] Not available 10/23/2014 10:53:23 Mother Autoimmune disease previo usly record ed as Thyroi d or other Autoim mune Diseas es [email or web address] Not available 10/23/2014 10:53:23 Mother Hypercholest erolemia previo usly record ed as Elevat ed Choles terol [email or web address] Not available 10/23/2014 10:53:23 Paternal Grandfather Malignant neoplastic disease previo usly record ed as Brain Cancer [email or web address] Not available 10/23/2014 10:53:23 Paternal Grandmother Malignant neoplastic disease previo usly record ed as Breast Cancer [email or web address] Not available 10/23/2014 10:53:23 Maternal Grandfather Hypercholest erolemia previo usly record ed as Elevat ed Choles terol [email or web address] Not available 10/23/2014 10:53:23 Maternal Grandmother Hypercholest erolemia previo usly record ed as Elevat ed Choles terol [email or web address] Not available 10/23/2014 10:53:23 Brother Allergy Peanut & tree nuts [email or web address] Not available 10/23/2014 10:53:23 Brother Asthma [email or web address] Not available 10/23/2014 10:53:23 Sister Asthma [email or web address] Not available 10/23/2014 10:53:23 Sister Allergy Peanut & tree nuts [email or web address] Not available 10/23/2014 10:53:23 Father Asthma [email or web address] Not available 10/23/2014 10:53:23 Father Malignant neoplastic disease Melano ma [email or web address] Not available 10/23/2014 10:53:23 Notes:Updated 01/01/21 Medical History Condition Response DEVELOPMENTAL/ BEHAVIORAL PROBLEMS Y Immunizations Vaccine Type Date Status Note Provider Name and Address Organization Details Recorded Time Influenza, split virus, trivalent, PF 10/07/19 12 completed Not Available [facility] 08/13/2019 02:35:17 Novel [id number] 07/04/20 09 completed Not Available [facility] 08/13/2019 02:34:46 Tdap 10/20/19 13 completed Not Available [facility] 08/13/2019 02:33:46 meningococcal [id number] 10/20/19 13 completed Not Available [facility] 08/13/2019 02:33:32 MMR 01/08/20 02 completed Not Available [facility] 12/22/2022 14:53:22 IPV 04/15/20 02 completed Not Available [facility] 12/22/2022 14:53:22 DTaP 04/15/20 02 completed Not Available [facility] 12/22/2022 14:53:22 Hep B, unspecified formulation 11/13/19 01 completed Not Available [facility] 12/22/2022 14:53:22 DTaP 10/15/19 06 completed Not Available [facility] 12/22/2022 14:53:22 Hep B, unspecified formulation 10/11/19 01 completed Not Available [facility] 12/22/2022 14:53:22 varicella 04/15/20 02 completed Not Available [facility] 12/22/2022 14:53:22 Hep B, unspecified formulation 06/30/20 01 completed Not Available [facility] 12/22/2022 14:53:22 Hib, unspecified formulation 04/29/20 01 completed Not Available [facility] 12/22/2022 14:53:22 IPV 10/15/19 06 completed Not Available [facility] 12/22/2022 14:53:22 DTaP 04/29/20 01 completed Not Available [facility] [facility] 12/22/2022 14:53:22 IPV 12/11/19 01 completed Not Available [facility] 12/22/2022 14:53:22 Hib, unspecified formulation 01/08/20 02 completed Not Available [facility] 12/22/2022 14:53:22 Hib, unspecified formulation 02/05/20 01 completed Not Available [facility] 12/22/2022 14:53:22 Hib, unspecified formulation 12/11/19 01 completed Not Available [facility] 12/22/2022 14:53:22 IPV 02/05/20 01 completed Not Available [facility] 12/22/2022 14:53:22 DTaP 02/05/20 01 completed Not Available [facility] 12/22/2022 14:53:22 MMR 10/05/19 05 completed Not Available [facility] 12/22/2022 14:53:22 DTaP 12/11/19 01 completed Not Available [facility] 12/22/2022 14:53:22 pneumococcal conjugate PCV 7 04/29/20 01 completed Not Available [facility] 12/22/2022 14:53:22 pneumococcal conjugate PCV 7 12/11/19 01 completed Not Available [facility] 12/22/2022 14:53:22 pneumococcal conjugate PCV 7 06/09/20 03 completed Not Available [facility] 12/22/2022 14:53:22 pneumococcal conjugate PCV 7 02/05/20 01 completed Not Available [facility] 12/22/2022 14:53:22 varicella 10/13/19 08 completed Not Available [facility] 12/22/2022 14:53:22 HPV9 10/17/19 16 completed Not Available [facility] 08/13/2019 02:36:40 HPV9 12/26/19 16 completed Not Available [facility] 08/13/2019 02:36:45 Influenza, injectable,julieta valent, preservative free, pediatric 06/26/20 16 completed Not Available [facility] 12/22/2022 14:53:22 HPV9 04/21/20 16 completed Not Available [facility] 08/13/2019 02:37:01 influenza, unspecified formulation 05/27/20 18 completed Not Available [facility] 12/22/2022 14:53:22 influenza, unspecified formulation 04/03/20 09 completed Not Available [facility] 12/22/2022 14:53:22 meningococcal MCV4P 10/13/19 18 completed Not Available [facility] 08/13/2019 02:38:13 meningococcal B, OMV 10/13/19 18 completed Not Available [facility] 08/13/2019 02:38:20 meningococcal B, OMV 10/12/19 19 completed Not Available [facility] 08/13/2019 02:38:53 Hep A, adult 10/03/19 20 cancelled patient objection Raimundo Vallecillo MD [address] [place], [phone], [facility] 10/03/2019 11:15:30 Influenza, split virus, quadrivalent, PF 10/03/19 20 cancelled patient objection Raimundo Vallecillo MD [address], [place], , [facility] 10/03/2019 11:15:30 Novel [id number] , all formulations 06/06/20 09 completed Not Available [facility] 12/22/2022 14:53:22 influenza, unspecified formulation 06/29/20 07 completed Not Available [facility] 12/22/2022 14:53:22 Influenza, split virus, trivalent, preservative 04/17/20 10 completed Not Available [facility] 08/13/2019 02:35:05 Past Encounters Encounter ID Performer Location Encounter Start Date Encounter Closed Date Diagnosis/Indication Diagnosis SNOMED-CT Code Diagnosis ICD10 Code [id number] [facility] [address] [place] [address] [id number] 4 03/21/2007 11:58:27 03/21/2007 11:59:04 [id number] [facility] [address] [place] [address] [id number] 4 06/29/2007 15:20:38 06/29/2007 15:58:38 [id number] [facility] [address] [place] [address] [id number] 4 09/06/2007 16:33:31 09/06/2007 16:57:05 [id number] [facility] [address] [place] [address] [id number] 4 09/15/2007 11:40:17 09/15/2007 12:47:42 [id number] [facility] [address] [place] [address] [id number] 4 10/12/2007 15:09:42 10/12/2007 15:45:10 [id number] [facility] [address] [place] [address] [id number] 4 06/29/2008 14:39:59 04/05/2009 01:23:50 [id number] [facility] [address] [place] [address] [place] [address] 4 10/12/2008 15:32:52 10/12/2008 16:21:43 [id number] [facility] [address] [place] [address] 11/20/2008 14:56:26 11/20/2008 15:31:22 [id number] [facility] [address] [place] [address] 01/29/2009 09:39:39 01/29/2009 10:31:59 [id number] [facility] [address] [place] [address] 04/03/2009 16:24:23 04/03/2009 17:25:07 [id number] [facility] [address] [place] [address] 07/04/2009 15:07:02 07/04/2009 17:17:54 [id number] [facility] [address] [place] [address] 4 10/15/2009 15:31:20 10/15/2009 16:51:40 [id number] [facility] [address] [place] [address] 02/04/2010 09:31:47 02/04/2010 09:57:01 [id number] [facility] [address] [place] [address] 4 04/03/2010 15:08:48 04/03/2010 15:53:28 [id number] [facility] [address] [place] [address] 10/03/2010 15:29:07 10/03/2010 16:45:36 [id number] [facility] [address] [place] [address] 4 10/07/2011 15:33:46 10/07/2011 16:22:18 [id number] [facility] [address] [place] [id number] 01/05/2012 14:46:30 01/05/2012 15:42:38 [id number] Brianna Lezama [facility] [address] [place] [id number] 10/19/2012 14:05:04 10/19/2012 16:15:19 [id number] Gini Flynn R.N. [facility] w [address] [place] [address] [id number] 4 10/11/2013 09:37:48 10/11/2013 10:08:30 Well child [id number] Ely Lainez M.A. [facility] [address] [place] [id number] 4 10/23/2014 10:40:32 10/23/2014 11:12:29 Well child [id number] Abnormal weight gain 161 107565 Acne [id number] Raimundo Vallecillo MD [facility] w [address] [place] [id number] 4 07/06/2015 15:15:16 07/06/2015 16:52:19 Ankle pain 900408073 M25.571 [id number] Juan Franklinsahildeonte [facility] [address] [place] [id number] 4 10/17/2015 09:30:40 10/17/2015 10:11:02 Well child 987219153 Z00.129 Active or passive immunization 244357826 Z23 Abnormal weight gain 161 830335 R63.5 Acne 91198480 L70.9 [id number] Juan Best [facility] [address] [place] [id number] 4 12/26/2015 14:20:25 12/26/2015 15:13:33 Active or passive immunization 707176299 Z23 Abnormal weight gain 161 970222 R63.5 [id number] Juan Best [facility] [address] [place] [address] [id number] 4 01/23/2016 14:33:57 01/23/2016 14:59:09 Acne 73826404 L70.9 Abnormal weight gain 161 226369 R63.5 [id number] [place] [facility] [address] [place] [id number] 4 03/26/2016 14:00:05 03/26/2016 14:38:12 Contact dermatitis due to plants, except food 26528531 L25.5 [id number] Juan Best [address] [address] 4 04/21/2016 11:19:06 04/21/2016 12:00:40 Active or passive immunization 839746968 Z23 Acne 45831040 L70.9 Abnormal weight gain 161 117272 R63.5 [id number] Juan Best [address] [address] 4 09/29/2016 15:58:09 09/29/2016 16:43:30 Well child 907581748 Z00.121 Obesity 340535667 E66.9 [id number] Juan Best [address] [address] 4 10/12/2017 09:34:27 10/12/2017 10:20:18 Well child 561064072 Z00.121 Childhood obesity 584170 003 Z68.54 Active or passive immunization 034310988 Z23 Learning difficulties 16 5252352 F81.9 [id number] Raimundo Vallecillo MD [address] [address] 4 10/11/2018 09:36:10 10/11/2018 10:44:51 Active or passive immunization 081549568 Z23 Adult heal th examination 572775514 Z00.00 Obesity 758690929 E66.9 [id number] Raimundo Vallecillo MD [address] [address] 4 10/03/2019 10:45:31 10/03/2019 12:25:39 Active or passive immunization 250894849 Z23 Adult heal th examination 860877407 Z00.00 Increased body mass index 11312505 E66.3 [id number] Raimundo Vallecillo MD [address] [address] 01/01/2021 09:16:25 01/01/2021 11:27:49 Adult health examination 659717398 Z00.00 Diet education 31836814 Z71.3 Exercises education, guidance, and counseling 095185613 Z71.82 Increased body mass index 22258375 E66.3 [id number] Raimundo Vallecillo MD [address] [place] [address] 01/02/2022 16:27:34 01/02/2022 19:42:43 Upper respiratory infection 59493751 J06.9 Hematochezia 713708265 K 92.1 Health Concerns Section Related Observation LastModified by Organization Detai ls LastModified Time None Recorded Concern Status LastModified by Organization Details LastModified Time None Recorded Advance Directives Directive None Recorded Payers Encounter Date Sequence Insurance Name Policy Number Policy Rodriguez Covered Member ID Rodriguez Member ID Guarantor Name 10/12/2017 1 [place] [id number] [employer] [employer] 4 (HMO) [id number] 1 Yayo H Andrea [id number] Yayo H Andrea 10/11/2018 1 [place] [address] [employer] 4 (HMO) [id number] 1 Yayo H Andrea [id number] Yayo H Andrea 10/03/2019 1 [place] [address] [employer] 4 (HMO) [id number] 1 Yayo H Andrea [id number] Yayo H Andrea 01/01/2021 1 [place] [address] [employer] 4 (HMO) [id number] 1 Yayo H Andrea [id number] Yayo H Andrea 01/02/2022 1 [place] [address] [employer] 4 (HMO) [id number] 1 Yayo H Andrea [id number] Yayo H Andrea Notes Date Note Type Note Provider Name and Address Organization Details Recorded Time 10/03/2019 text/html No recent travel Raimundo Vallecillo MD [address] [place] [address], , [facility] 10/03/2019 12:25:10 01/01/2021 text/html No recent travel Raimundo Vallecillo MD [address] [place] [address], [phone], [facility] 01/01/2021 11:27:19 01/02/2022 text/html RS Sick Visit Narrative HistoryReported bypatient.Notes:Here for bloody stools x 2 days. Last noc and this am. Usually has 2 bm's a day formed. Was in [place] 2 weekends ago and had a bad abd pain. Vomiting and Diarrhea lasted one day didn't eat for 38 hrs, stomach flu. 6 of his friends also had it. Resolved in 36 hrs. Congestion for past 4-5. Had a cough which resolved. Stuffy nose. Green yellow mucous from nose and mouth. Sl st this am resolved as the day went on. No Constipation. No Travel.2 stools with bright blood on the stool. not in the stool. nl stools Raimundo Vallecillo MD [address] [place] [address], , [facility] 01/02/2022 19:42:13
--- OUTSIDE RECORDS SUMMARY | 2024-07-29 08:45 | XMS_ITS | Patient Health Record ---
Author Organization [facility] Address [address] [place] [address] Care Team Providers Care Bracelet Former Name Role Phone NO PCP, NO PCP Primary Care Provider Troy Aguero M.D, M.P.H, Luz Elena Unavailable [phone] Allergies No Known Allergies Reason For Referral No Information Social History Tobacco Use: Social History Observation Description Date Details (start date - stop date) Never Smoker NA - NA Smoking: Question Answer Notes Are you a : Never Smoker Alcohol Screen Question Answer Notes Did you have a drink contain ing alcohol in the past year? Yes How often did you have a dri nk containing alcohol in the past year? Two to four times a month (2 points) How many drinks did you have on a typical day when you were drinking in the past year? 1 or 2 (0 points) How often did you have six o r more drinks on one occassion in the past year? Never (0 points) Points 2 Interpretation Negative Plan Of Treatment No Information Insurance Providers Payer Name Payer Address Payer Phone Subscriber Number Group Number Insured Name Patient Relationship to Insured Coverage Start Date Coverage End Date [facility] [address] [place] [phone] [id number] Yayo Mendez Child - Insured has Financial Responsibility Medical (General) History Surgical History Surgery Date(Month/Year) [place] teeth
== END 2024-07-29 09:14 | disposition home or self-care (01) ==
PROVIDERS: PCP Nurse Practitioner Family; Visit Provider Physician Assistant Medical
DX: R53.82 Chronic fatigue, unspecified (principal); G47.9 Sleep disorder, unspecified; R06.83 Snoring
CPT/HCPCS: 99203

== ENCOUNTER → 2024-07-29 08:31 | Outpatient (BNVA) | payer OTHER, SELFPAY | PROVIDERS: PCP Nurse Practitioner Family; Visit Provider Physician Assistant Medical ==

== ENCOUNTER → 2024-09-05 10:57 | Outpatient (REF) | payer OTHER, SELFPAY ==
--- OUTSIDE RECORDS SUMMARY | 2024-09-05 12:04 | XMS_ITS | Clinical Summary ---
Author Organization Formerly [facility] Address [address] [place] [address] Care Team Providers Care Road Machine Runner Name Role Phone Pcp, No Primary Care Provider Unavailabl e Allergies No known active allergies Medications Medication Sig Dispensed Refills Start Date End Date Status rwckazmc-uyclcihzz-t ydrocortisone (CORTISPORIN) 3.5-64246-2 otic suspensionIndication s:Otalgia, right Administer 4 drops to the right ear 4 (four) times a day. 10 mL 10/06/2022 Active Social History Tobacco Use Types Packs/Day Years Used Date Smoking Tobacco: Never Smokeless Tobacco: Current Tobacco Cessation:Ready to Q uit: Not Asked; Counseling Given: Not Answered Comments:Patient vapes Sex and Gender Information Value Date Recorded Sex Assigned at Male 10/06/2022 12:06 PM EDT Gender Identity Male 10/06/2022 12:06 PM EDT Sexual Orientation Heterosexual (straight) 10/06 12:06 PM EDT Last Filed Vital Signs Vital Sign Reading Time Taken Comments Blood Pressure 120/72 10/06/2022 12:14 PM EDT Pulse 54 10/06/2022 12:14 PM EDT Temperature 36.6 ??C (97.8 ??F) 10/06/2022 12:14 PM E DT Respiratory Rate 16 10/06/2022 12:14 PM EDT Oxygen Saturation 98% 10/06/2022 12:14 PM EDT Inhaled Oxygen Concentration - - Weight - - Height - - Body Mass Index - - Plan of Treatment Health Maintenance Due Date Last Done Comments Hepatitis C Virus Screening 2000 HIV Screening 2013 HPV Vaccines (1 - Male 3-dose series) 10/11/2015 DTaP/Tdap/Td Vaccines (1 - Tdap) 10/11/2019 Hepatitis B Vaccines (1 of 3 - 19+ 3-dose series) 10/11/2019 Influenza Vaccine 02/25/2024 05/27/2018, , 04/17/2010, Additional history exists COVID-19 Vaccine ( - 2023-25 season) 2024 Pneumococcal Vaccine: Pediatric (0-5 Years) and At-Risk Patients (6 to 49 Years) Aged Out No longer eligible based on patient's age to complete this topic Care Teams Road Machine Runner Relationship Specialty Start Date End Date Pcp, No PCP - General General Medicine 10/06/22
--- OUTSIDE RECORDS SUMMARY | 2024-09-05 12:04 | XMS_ITS | Patient Health Record ---
Author Organization [facility] Address [address] [place] [address] Care Team Providers Care Mandate Retail Service Merchandiser Name Role Phone NO PCP, NO PCP Primary Care Provider Troy Aguero M.D, M.P.H, Luz Elena Unavailable [phone] Allergies No Known Allergies Reason For [...] Insured Coverage Start Date Coverage End Date [facility] [address] [facility] [place] [phone] [id number] Yayo Mendez Child - Insured has Financial Responsibility Medical (General) History Surgical History Surgery Date(Month/Year) [place] teeth
--- OUTSIDE RECORDS SUMMARY | 2024-09-05 12:04 | XMS_ITS | Data Portability ---
Author Organization [place] - [facility], [facility] Address [address] [place] [id number] Assessment Encounter Date Assessment Date Assessment LastModified [...] panel, blood 018 10/13/19 18 [facility], [address] [place] [address], [phone], 8 10:08:58 glucose, QN [mass/vo lume], serum or plasma 018 10/13/19 18 [facility], [address] [place], [address], 8 18:20:02 ALT (alanine aminotra nsferase ), serum or plasma 018 10/13/19 18 [facility], [address], [place], [address], 8 18:20:01 CT + NG DNA, PCR, urine 019 10/12/19 19 [facility], [address] [place] [address], [phone], 9 11:42:07 CT + NG DNA, PCR, urine 020 10/03/19 20 [facility], [address], [place], [address], 0 13:38:18 CT + NG DNA, PCR, urine 021 01/02/20 21 [facility], [address] [place] [address], [phone], 1 10:24:04 Referral None recorded . Procedures None recorded . Surgeries None recorded . Imaging None recorded . Medication Orders None recorded . Patient TargetsNo targets recorded. Patient Instructions Encounter Date Encounter Id Patient Instructions Last Modified By Organization Details Last Modified Time 10/12/2017 [id number] patient health questionnaire modified for adolescents* Not available 10/12/2017 10:01:13 immunization: wh at you need to know Not available 10/12/2017 10:01:13 mom declines flu vaccine; life issues/balance/saf ety; george needs to embrace need for healthier eating and weight loss; hard thing to do and no easy solutions or tricks to accomplish Not available 10/12/2017 10:01:02 10/11/2018 [id number] Learning About H ow to Make Healthy [...] know jyunis Not available 10/11/2018 10:17:40 10/03/2019 [id number] 2676 program - 5 fruits & veggies jyunis Not available 10/03/2019 11:15:30 5210 program - 1 hour of exercise jyunis Not available 10/03/2019 11:15:30 patient health questionnaire depression assessment* ZHANE Not available 10/03/2019 11:20:19 immunization: wh at you need to know jyunis Not available 10/03/2019 11:15:30 01/01/2021 [id number] program - 5 fruits & veggies jyunis Not available 01/01/2021 09:35:00 5210 program - 1 hour of exercise jyunis Not available 01/01/2021 09:35:00 patient health questionnaire depression assessment* jyunis Not available 01/01/2021 09:35:00 immunization: wh at you need to know jyunis Not available 01/01/2021 09:35:00 01/02/2022 [id number] upper respirator y infection (cold): care instructions jyunis Not available 01/02/2022 19:42:09 Reason for Referral None Reported. Results Created Date Observation Date Name Description Value Unit Range Abnormal Flag Note LastModifiedBy Organization Detail LastModifiedTime 01/02/20 21 01/01/2021 patie nt healt h quest ionna lorena depre ssion asses sment * PHQ-9 negati ve Not Available [facility] [address] [place] [address], [address], 01/01/2021 09:18:06 10/12/19 19 10/11/2018 patie nt healt h quest ionna lorena depre ssion asses sment * PHQ-9 negati ve Not Available [facility] [address] [facility], [place], [address], 10/11/2018 09:39:09 10/13/19 18 10/12/2017 patie nt healt h quest jac carrillo modif ied for adole scent s* PHQ-9 negati ve Not Available [facility] [address] [facility], [place], [address], 10/12/2017 09:36:15 10/17/19 18 10/16/2017 ALT (omero ine amino trans feras e), serum or plasm a ALT 22 U/L (0-41) Not Available [facility] [address] [place], [address], 10/16/2017 18:20:01 10/17/19 18 10/16/2017 gluco se, QN [mass /volu me], serum or plasm a glucose 86 mg/dL (70-99 ) FASTI NG Not Available [facility] [address] [place], [address], 10/16/2017 18:20:02 10/17/19 18 10/16/2017 lipid panel , serum cholesterol, total 165 mg/dL (<170) Not Available [facility] [address] [place], [address], 10/16/2017 18:20:03 10/17/19 18 10/16/2017 lipid panel , serum triglyceride 197 mg/dL (<90) high Not Available [facility] [address] [place], [address], 10/16/2017 18:20:03 10/17/19 18 10/16/2017 lipid panel , serum HDL chol 35 mg/dL (>45) low Not Available [facility] [address] [place], [address], 10/16/2017 18:20:03 10/17/19 18 10/16/2017 lipid panel , serum LDL cholesterol, calculated 91 mg/dL (0-109 ) Not Available [facility] [address], [place], [address], 10/16/2017 18:20:03 10/17/19 18 10/16/2017 lipid panel , serum non HDL cholesterol (calc) 130 mg/dL (<120) high Not Available [facility] [address] [place], [address], 10/16/2017 18:20:03 10/12/19 19 10/12/2018 CT + [...] Available [facility] [address], [place], [address], 10/12/2018 13:45:25 10/12/19 19 10/12/2018 CT + [...] neede d. Conta ct phone numbe r [phone]. Thera peuti c failu re or succe ss canno t be deter mined with the Aptim a Combo 2 assay since nucle ic acid may persi st follo wing appro priat e antim icrob ial thera py. The [facility] Disea se Contr ol and Preve ntion ([facility]) recom mends confi rmato ry retes ting using cultu re or a diffe rent nucle ic acid ampli ficat ion test when posit sonia resul ts occur , if indic ated. Not Available [facility] [address], [place], [address], 10/12/2018 13:45:25 10/03/19 20 10/04/2019 CT + [...] Available [facility] [address], [place], [address], 10/04/2019 13:38:18 10/03/1910/04/2019 CT + NG DNA, [...] Disea se Contr ol and Preve ntion ([facility]) recom mends confi rmato ry retes ting using cultu re or a diffe rent nucle ic acid ampli ficat ion test when posit sonia resul ts occur , if indic ated. Not Available [facility] [address], [place], [place], [address], 10/04/2019 13:38:18 10/03/19 20 10/03/2019 patie nt healt h quest ionna lorena depre ssion asses sment * PHQ-9 negati ve Not Available [facility] [address] [facility], [place], [address], 10/03/2019 10:57:39 01/02/20 21 01/02/2021 CT + [...] C. Trach omati s Not Available [facility] [address] [place], [address], 01/02/2021 08:21:55 01/02/20 21 01/02/2021 CT + [...] rRNA from N.Daniel orrho eae. A negat sonai resul t does not precl ude infec [...] Disea se Contr ol and Preve ntion ([facility]) recom mends confi rmato ry retes ting using cultu re or a diffe rent nucle ic acid ampli ficat ion test when posit sonia resul ts occur , if indic ated. Not Available [facility] [address], [place], [address], 01/02/2021 08:21:55 01/02/20 21 01/01/2021 CT + NG DNA, PCR, urine Specimen Colle marcus in office Not Available [facility] [address] [place] [address], [address], 01/01/2021 09:18:07 Result Notes None recorded. Problems Name Problem SNOMED Code Status Onset Date Resolution Date Notes Provider Name and Address Organization Details Recorded Time Acne 26074018 Completed 10/12/2017 [facility] 8 09:50:56 Ankle pain 432268623 Completed 10/16/2015 GI[facility] Hurst [facility] 6 13:32:28 Learning difficulti es 420192510 Active 2016 [facility] 7 16:18:10 Obesity 534192935 Active 2017 [facility] 8 11:02:08 Cellulitis 499542943 Completed 200810/07/2011 Not Available [facility] 3 03:01:32 Viral disease 64797729 Completed 200710/07/2011 Not Available [facility] 3 03:01:32 Eruption 308953120 Completed 200710/07/2011 Not Available [facility] 3 03:01:32 Abnormal weight gain 188854068 Completed 200810/08/2017 Juan keenan [facility] 8 11:02:03 Allergic rhinitis 26951944 Active Not Available [facility] 3 03:01:32 Open wound 733589657 Completed 200710/07/2011 Not Available [facility] 3 03:01:32 Acute pharyngiti s 388574387 Completed 200610/07/2011 Not Available [facility] 3 03:01:32 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 [...] 0 170.18 cm 99 % 41 kg/m2 646583. 76 g 120 mm[Hg] 68 mm[Hg] Maile Calloway R.N. [facility] 0 11:03:05 Date Recorded Body height Body mass index (BMI) Percentile per age and sex Body mass index (BMI) Body weight Systolic blood pressure Diastolic blood pressure Provider Name and Address Organization Details Last Updated DateTime 1 170.18 cm 98 % 34.4 kg/m2 98431.8 8 g 122 mm[Hg] 76 mm[Hg] Edyta Mcclure R.N. [facility] 1 09:20:57 Date Recorded Body height Body mass index (BMI) Body weight Systolic blood pressure Diastolic blood pressure Provider Name and Address Organization Details Last Updated DateTime 10/12/2017 169.55 cm 36.2 kg/m2 710272.4 5 g 114 mm[Hg] 70 mm[Hg] Ely davies M.A. [facility] 8 09:39:37 Date Recorded Body height Body mass index (BMI) Percentile per age and sex Body mass index (BMI) Body weight Systolic blood pressure Diastolic blood pressure Provider Name and Address Organization Details Last Updated DateTime 9 170.18 cm 99 % 37 kg/m2 516578. 52 g 120 mm[Hg] 70 mm[Hg] Cuca ortiz C.M.A. [facility] 9 09:44:25 Social History Question Answer Notes LastModified by Organizat ion Details LastModified Time Tobacco Smoking Status Never Smoker Cain Paredes, [facility] 01/05/2012 14:59:43 Parent's Marital Status [email or web address] Information not available 05/31/2011 Home Situation Both Parents DBA_[email or web address] Information not available 05/31/2011 Siblings Yayo 01/31/1997, Blanca 07/04/1998 [email or web address] Information not available 05/31/[address] 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 Information not available 10/17/2015 Parent's Name Yayo [...] trivalent, PF 10/07/19 12 completed Not Available [facility] 08/13/2019 02:35:17 Novel [id number] 07/04/20 09 completed Not Available [facility] 08/13/2019 02:34:46 Tdap 10/20/19 13 completed Not Available [facility] 08/13/2019 02:33:46 meningococcal MCV4P 10/20/19 13 completed Not Available [facility] 08/13/2019 02:33:32 MMR 01/08/20 02 completed Not Available [facility] 12/22/2022 14:53:22 IPV 04/15/20 02 completed Not Available [facility] 12/22/2022 14:53:22 DTaP 04/15/20 02 completed Not Available [facility] 12/22/2022 14:53:22 Hep B, unspecified formulation 11/13/19 01 completed Not Available [facility] 12/22/2022 14:53:22 DTaP 10/15/19 06 completed Not Available [facility] 12/22/2022 14:53:22 Hep B, unspecified formulation 10/11/19 01 completed Not Available [facility] 12/22/2022 14:53:22 varicella 04/15/20 02 completed Not Available [facility] 12/22/2022 14:53:22 Hep B, unspecified formulation 06/30/20 01 completed Not Available [facility] 12/22/2022 14:53:22 Hib, unspecified formulation 04/29/20 01 completed Not Available [facility] 12/22/2022 14:53:22 IPV 10/15/19 06 completed Not Available [facility] 12/22/2022 14:53:22 DTaP 04/29/20 01 completed Not Available [facility] 12/22/2022 14:53:22 IPV 12/11/19 01 completed Not Available [facility] 12/22/2022 14:53:22 Hib, unspecified formulation 01/08/20 02 completed Not Available [facility] 12/22/2022 14:53:22 Hib, unspecified formulation 02/05/20 01 completed Not Available [facility] 12/22/2022 14:53:22 Hib, unspecified formulation 12/11/19 01 completed Not Available [facility] 12/22/2022 14:53:22 IPV 02/05/20 01 completed Not Available [facility] 12/22/2022 14:53:22 DTaP 02/05/20 01 completed Not Available [facility] 12/22/2022 14:53:22 MMR 10/05/19 05 completed Not Available [facility] 12/22/2022 14:53:22 DTaP 12/11/19 01 completed Not Available [facility] 12/22/2022 14:53:22 pneumococcal conjugate PCV 7 04/29/20 01 completed Not Available [facility] 12/22/2022 14:53:22 pneumococcal conjugate PCV 7 12/11/19 completed Not Available [facility] 12/22/2022 14:53:22 pneumococcal conjugate PCV 7 06/09/20 03 completed Not Available [facility] 12/22/2022 14:53:22 pneumococcal conjugate PCV 7 02/05/20 01 completed Not Available [facility] 12/22/2022 14:53:22 varicella 10/13/19 08 completed Not Available [facility] 12/22/2022 14:53:22 HPV9 10/17/19 16 completed Not Available [facility] 08/13/2019 02:36:40 HPV9 12/26/19 16 completed Not Available [facility] 08/13/2019 02:36:45 Influenza, injectable,julieta valent, preservative free, pediatric 06/26/20 16 completed Not Available [facility] 12/22/2022 14:53:22 HPV9 04/21/20 16 completed Not Available [facility] 08/13/2019 02:37:01 influenza, unspecified formulation 05/27/20 18 completed Not Available [facility] 12/22/2022 14:53:22 influenza, unspecified formulation 04/03/20 09 completed Not Available [facility] 12/22/2022 14:53:22 meningococcal MCV4P 10/13/19 18 completed Not Available [facility] 08/13/2019 02:38:13 meningococcal B, OMV 10/13/19 18 completed Not Available [facility] 08/13/2019 02:38:20 meningococcal B, OMV 10/12/19 19 completed Not Available [facility] 08/13/2019 02:38:53 Hep A, adult 10/03/19 20 cancelled patient objection Raimundo Vallecillo MD [address] [place], [address], [facility] 10/03/2019 11:15:30 Influenza, split virus, quadrivalent, PF 10/03/19 20 cancelled patient objection Raimundo Vallecillo MD [address] [place], [place], , [facility] 10/03/2019 11:15:30 Novel [id number] , all formulations 06/06/20 09 completed Not Available [facility] 12/22/2022 14:53:22 influenza, unspecified formulation 06/29/20 07 completed Not Available [facility] 12/22/2022 14:53:22 Influenza, split virus, trivalent, preservative 04/17/20 10 completed Not Available [facility] 08/13/2019 02:35:05 Past Encounters Encounter ID Performer Location Encounter Start Date Encounter Closed Date Diagnosis/Indication Diagnosis SNOMED-CT Code Diagnosis ICD10 Code Diagnosis Note [id number] [facility] [address] [place] [id number] 4 03/21/2007 11:58:27 03/21/2007 11:59:04 [id number] [facility] [address] [place] [id number] 4 06/29/2007 15:20:38 06/29/2007 15:58:38 [id number] [facility] [address] [place] [id number] 4 09/06/2007 16:33:31 09/06/2007 16:57:05 [id number] [facility] [address] [place] [id number] 4 09/15/2007 11:40:17 09/15/2007 12:47:42 [id number] [facility] [address] [place] [id number] 4 10/12/2007 15:09:42 10/12/2007 15:45:10 [id number] [facility] [address] [place] [id number] 4 06/29/2008 14:39:59 04/05/2009 01:23:50 [id number] [facility] [address] [place] [address] 10/12/2008 15:32:52 10/12/2008 16:21:43 [id number] [facility] [address] [place] [address] 11/20/2008 14:56:26 11/20/2008 15:31:22 [id number] [facility] [address] [place] [address] 01/29/2009 09:39:39 01/29/2009 10:31:59 [id number] [facility] [address] [place] [address] 04/03/2009 16:24:23 04/03/2009 17:25:07 [id number] [facility] [address] [place] [address] 07/04/2009 15:07:02 07/04/2009 17:17:54 [id number] [facility] [address] [place] [address] 10/15/2009 15:31:20 10/15/2009 16:51:40 [id number] [facility] [address] [place] [address] 02/04/2010 09:31:47 02/04/2010 09:57:01 [id number] [facility] [address] [place] [address] 04/03/2010 15:08:48 04/03/2010 15:53:28 [id number] [facility] [place] [address] [place] [address] 10/03/2010 15:29:07 10/03/2010 16:45:36 [id number] [facility] [address] [place] [address] 10/07/2011 15:33:46 10/07/2011 16:22:18 [id number] [facility] [address] [place] [address] 01/05/2012 14:46:30 01/05/2012 15:42:38 [id number] Brianna Lezama [facility] [address] [place] [id number] 10/19/2012 14:05:04 10/19/2012 16:15:19 [id number] Gini Flynn R.N. [facility] w [address] [place] [id number] 4 10/11/2013 09:37:48 10/11/2013 10:08:30 Well child [id number] [id number] Ely Lainez M.A. [facility] w [address] [place] [id number] 4 10/23/2014 10:40:32 10/23/2014 11:12:29 Well child 685153817 Abnormal weight gain 916792584 Acne 21450858 [id number] Raimundo Vallecillo MD [facility] w [address] [place] [id number] 07/06/2015 15:15:16 07/06/2015 16:52:19 Ankle pain 709537558 M25.571 [id number] Juan Best [facility] [address] [place] [id number] 10/17/2015 09:30:40 10/17/2015 10:11:02 Well child 774235415 Z00.129 Active or passive immunization 246462236 Z23 Abnormal weight gain 161 579557 R63.5 Acne 67810978 L70.9 [id number] Juan Best [facility] [address] [place] [id number] 12/26/2015 14:20:25 12/26/2015 15:13:33 Active or passive immunization 710049084 Z23 Abnormal weight gain 161 400491 R63.5 [id number] Juan Best [facility] [address] [place] [id number] 4 01/23/2016 14:33:57 01/23/2016 14:59:09 Acne 02978730 L70.9 Abnormal weight gain 161 295990 R63.5 [id number] [place] [facility] [address] [place] [id number] 03/26/2016 14:00:05 03/26/2016 14:38:12 Contact dermatitis due to plants, except food 69192415 L25.5 PI + accompaniy ing id reaction? has been on tiny dose of prednisone for 7 day taper (20 mg->5 mg) will use 40 mg as noted below and f/u PRN- hold on abx for acne until prednisone is completed [id number] Juan [address] [address] 04/21/2016 11:19:06 04/21/2016 12:00:40 Active or passive immunization 360132008 Z23 Acne 45170875 L70.9 Abnormal weight gain 161 133521 R63.5 [id number] Juan Best [facility] [address] [address] 09/29/2016 15:58:09 09/29/2016 16:43:30 Well child 002651899 Z00.121 Had flu vaccine at school. Obesity 924221289 E66.9 [id number] Juan Best [facility] [address] [address] 10/12/2017 09:34:27 10/12/2017 10:20:18 Well child 906258025 Z00.121 Had flu vaccine at school. Childhood obesity 890582 003 Z68.54 Active or passive immunization 432938615 Z23 Learning difficulties 16 0284864 F81.9 [id number] Raimundo Vallecillo MD [facility] [address] [place] [id number] 10/11/2018 09:36:10 10/11/2018 10:44:51 Active or passive immunization 270397379 Z23 Adult heal th examination 997971095 Z00.00 Obesity 684166704 E66.9 [id number] Raimundo Vallecillo MD [address] [address] 10/03/2019 10:45:31 10/03/2019 12:25:39 Active or passive immunization 667911337 Z23 Adult heal th examination 239513607 Z00.00 Increased body mass index 03577652 E66.3 [id number] Raimundo Vallecillo MD [address] [address] 01/01/2021 09:16:25 01/01/2021 11:27:49 Adult health examination 519481782 Z00.00 Diet education 86057733 Z71.3 Exercises education, guidance, and counseling 075612159 Z71.82 Increased body mass index 31518179 E66.3 [id number] Raimundo Vallecillo MD [facility] [place] [address] [place] [address] [place] [address] 01/02/2022 16:27:34 01/02/2022 19:42:43 Upper respiratory infection 40955203 J06.9 Hematochezia 204395666 K 92.1 Health Concerns Section Related Observation LastModified by Organization Detai ls LastModified Time None Recorded Concern Status LastModified by Organization Details LastModified Time None Recorded Advance Directives Directive None Recorded Payers Encounter Date Sequence Insurance Name Policy Number Policy Rodriguez Covered Member ID Rodriguez Member ID Guarantor Name 10/12/2017 1 [place] [id number] [employer] OPT[employer] 4 (HMO) [id number] 1 Yayo Flaco Andrea [id number] Yayo Sam Andrea 10/11/2018 1 [place] [address] [employer] OPT[employer] 4 (HMO) [id number] 1 Yayo H Andrea [id number] Yayo H Andrea 10/03/2019 1 [place] [address] [employer]MO OPT[employer] 4 (HMO) [id number] 1 Yayo H Andrea [id number] Yayo H Andrea 01/01/2021 1 [place] [address] HMO OPTION 4 (HMO) [id number] 1 Yayo H Andrea [id number] Yayo H Andrea 01/02/2022 1 [place] [address] HMO OPTION 4 (HMO) [id number] 1 Yayo H Andrea [id number] Yayo Sam Andrea Notes Date Note Type Note Provider Name and Address Organization Details Recorded Time 10/03/2019 text/html No recent travel Raimundo Vallecillo MD [address] [place] [address] Carrillo L[place], , [facility] 10/03/2019 12:25:10 01/01/2021 text/html No recent travel Raimundo Vallecillo MD [address] [place] [address] Carrillo Licona [place], , [facility] 01/01/2021 11:27:19 01/02/2022 text/html RS Sick Visit Narrative HistoryReported bypatient.Notes:Here for bloody stools x 2 days. Last noc and this am. Usually has 2 bm's a day formed. Was in [place] 2 weekends ago and had a bad [...] the stool. nl stools Raimundo Vallecillo MD [address] [place] [address], [place], [address], [facility] 01/02/2022 19:42:13
== END ==
LOC: HO.SL 10:57
PROVIDERS: PCP Nurse Practitioner Family; Visit Provider Physician Assistant Medical
DX: G47.9 Sleep disorder, unspecified (principal); R53.83 Other fatigue; R06.83 Snoring
CPT/HCPCS: 95806

== ENCOUNTER → 2024-09-05 11:04 | Outpatient (BNV) | payer OTHER, SELFPAY | PROVIDERS: PCP Nurse Practitioner Family; Visit Provider Psychiatry & Neurology Neurology | DX: R06.83 Snoring (principal); G47.10 Hypersomnia, unspecified | CPT/HCPCS: 95806 ==

== ENCOUNTER 2024-11-10 06:09 | Outpatient (REF) | payer OTHER, SELFPAY ==
--- OUTSIDE RECORDS SUMMARY | 2024-11-10 06:12 | XMS_ITS | Patient Health Record ---
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
--- OUTSIDE RECORDS SUMMARY | 2024-11-10 06:12 | XMS_ITS | Data Portability ---
Author Organization [place] - [facility], [facility] Address [address] [place] [address] Assessment Encounter Date Assessment Date Assessment LastModified [...] Time Details Appointments None recorded . Lab CT + NG DNA, PCR, urine 021 [facility]/02/[facility] [address] [place] [address], [phone], 06/08/202 1 10:24:04 CT + NG DNA, PCR, urine 020 10/03/19 [facility] (Centralized Electronic Ordering - All Locations), Patient Can Go To The Location Of Their Choice, [id number] 0 13:38:18 CT + NG DNA, PCR, urine 019 10/12/19 [facility], [address] [place] [address], [phone], 9 11:42:07 lipid panel, blood 018 10/13/19 [facility], [address] [place] [address], [place], [address], 8 10:08:58 glucose, QN [mass/vo lume], serum or plasma 018 10/13/19 [facility] Patient Can Go To The Location Of Their Choice, [id number] 8 18:20:02 ALT (alanine aminotra nsferase ), serum or plasma 018 10/13/19 [facility] Patient Can Go To The Location Of Their Choice, [id number] 8 18:20:01 Referral None recorded . Procedures None recorded . Surgeries None recorded . Imaging None recorded . Medication Orders None recorded . Patient TargetsNo targets recorded. Patient Instructions Encounter Date Encounter Id Patient Instructions Last Modified By Organization Details Last Modified Time 10/12/2017 [id number] patient health questionnaire modified for adolescents* Not available 10/12/2017 10:01:13 immunization: wh at you need to know Not available 10/12/2017 10:01:13 mom declines flu vaccine; life issues/balance/saf ety; george needs to embrace need for healthier eating and weight loss; hard thing to do and no easy solutions or tricks to accomplish Not available 10/12/2017 10:01:02 10/11/2018 [id number] Learning About H ow to Make Healthy Changes in Your Child's Diet jmichelle Not available 10/11/2018 10:17:40 5210 program - 5 fruits & veggies jyunis Not available 10/11/2018 10:17:39 5210 program - 1 hour of exercise jyunis Not available 10/11/2018 10:17:39 patient health questionnaire depression assessment* jyunis Not available 10/11/2018 10:43:46 immunization: wh at you need to know jyunis Not available 10/11/2018 10:17:40 10/03/2019 [id number] 4714 program - 5 fruits & veggies jyunis Not available 10/03/2019 11:15:30 5210 program - 1 hour of exercise jyunis Not available 10/03/2019 11:15:30 patient health questionnaire depression assessment* ZHANE Not available 10/03/2019 11:20:19 immunization: wh at you need to know jyunis Not available 10/03/2019 11:15:30 01/01/2021 [id number] 8244 program - 5 fruits & veggies jyunis Not available 01/01/2021 09:35:00 5210 program - 1 hour of exercise jyunis Not available 01/01/2021 09:35:00 patient health questionnaire depression assessment* jyunis Not available 01/01/2021 09:35:00 immunization: wh at you need to know jyunis Not available 01/01/2021 09:35:00 01/02/2022 [id number] upper respirator y infection (cold): care instructions jyunis Not available 01/02/2022 19:42:09 Reason for Referral None Reported. Results Created Date Observation Date Name Description Value Unit Range Abnormal Flag Note LastModifiedBy Organization Detail LastModifiedTime 01/02/20 21 01/01/2021 patie nt healt h quest ionna lorena depre ssion asses sment * PHQ-9 negati ve Not Available [facility] [address] [place] [address], [address], 01/01/2021 09:18:06 10/12/19 19 10/11/2018 patie nt healt h quest ionna lorena depre ssion asses sment * PHQ-9 negati ve Not Available [facility] [address] [place], [address], 10/11/2018 09:39:09 10/13/19 18 10/12/2017 patie nt healt h quest jac carrillo modif ied for adole scent s* PHQ-9 negati ve Not Available [facility] [address] [place], [address], 10/12/2017 09:36:15 10/17/19 18 10/16/2017 ALT (omero ine amino trans feras e), serum or plasm a ALT 22 U/L (0-41) Not Available [facility] (Centralized Electronic Ordering - All Locations) Patient Can Go To The Location Of Their Choice, 10/16/2017 18:20:01 10/17/19 18 10/16/2017 gluco se, QN [mass /volu me], serum or plasm a glucose 86 mg/dL (70-99 ) FASTI NG Not Available [facility] (Centralized Electronic Ordering - All Locations) Patient Can Go To The Location Of Their Choice, 10/16/2017 18:20:02 10/17/19 18 10/16/2017 lipid panel , serum cholesterol, total 165 mg/dL (<170) Not Available [facility] (Centralized Electronic Ordering - All Locations) Patient Can Go To The Location Of Their Choice, 10/16/2017 18:20:03 10/17/19 18 10/16/2017 lipid panel , serum triglyceride 197 mg/dL (<90) high Not Available [facility] (Central[facility] Ordering - All Locations) Patient Can Go To The Location Of Their Choice, 10/16/2017 18:20:03 10/17/19 18 10/16/2017 lipid panel , serum HDL chol 35 mg/dL (>45) low Not Available [facility] (Centralized Electronic Ordering - All Locations) Patient Can Go To The Location Of Their Choice, 10/16/2017 18:20:03 10/17/19 18 10/16/2017 lipid panel , serum LDL cholesterol, calculated 91 mg/dL (0-109 ) Not Available [facility] (Centralized Electronic Ordering - All Locations) Patient Can Go To The Location Of Their Choice, [id number] 10/16/2017 18:20:03 10/17/19 18 10/16/2017 lipid panel , serum non HDL cholesterol (calc) 130 mg/dL (<120) high Not Available [facility] (Centralized Electronic Ordering - All Locations) Patient Can Go To The Location Of Their Choice, [id number] 10/16/2017 18:20:03 10/12/19 19 10/12/2018 CT + [...] C. Trach omati s Not Available [facility] (Centralized Electronic Ordering - All Locations) Patient Can Go To The Location Of Their Choice, [id number] 10/12/2018 13:45:25 10/12/19 19 10/12/2018 CT + [...] neede d. Conta ct phone numbe r [phone]. Thera peuti c failu re or succe ss canno t be deter mined with the Aptim a Combo 2 assay since nucle ic acid may persi st follo wing appro priat e antim icrob ial thera py. The Cent[facility] rs [facility] Disea se Contr ol and Preve ntion ([facility]) recom mends confi rmato ry retes ting using cultu re or a diffe rent nucle ic acid ampli ficat ion test when posit sonia resul ts occur , if indic ated. Not Available [facility] (Centralized Electronic Ordering - All Locations) Patient Can Go To The Location Of Their Choice, [id number] 10/12/2018 13:45:25 10/03/1910/04/2019 CT + NG DNA, PCR, urine [...] C. Trach omati s Not Available [facility] (Centralized Electronic Ordering - All Locations) Patient Can Go To The Location Of Their Choice, [id number] 10/04/2019 13:38:18 10/03/1910/04/2019 CT + NG DNA, PCR, urine urine GC amp probe (neg) normal NEGAT SONIA No Neiss eria Gonor rhoea e RNA detec marcus in this patie nt's sampl e (REFE RENCE RANGE /NORM AL VALUE : NOT DETEC MARCUS) NOTE: This test uses trans cript ion-m ediat ed ampli ficat ion metho d to detec t rRNA from NHeriberto orrho eae. A negat sonia resul t [...] Disea se Contr ol and Preve ntion ([facility]) recom mends confi rmato ry retes ting using cultu re or a diffe rent nucle ic acid ampli ficat ion test when posit sonia resul ts occur , if indic ated. Not Available [facility] (Centralized Electronic Ordering - All Locations) Patient Can Go To The Location Of Their Choice, [id number] 10/04/2019 13:38:18 10/03/19 20 10/03/2019 patie nt healt h quest ionna lorena depre ssion asses sment * PHQ-9 negati ve Not Available [facility] [address] [facility], [place], [address], 10/03/2019 10:57:39 01/02/2001/02/2021 CT + NG DNA, PCR, urine urine [...] C. Trach omati s Not Available [facility] (Centralized Electronic Ordering - All Locations) Patient Can Go To The Location Of Their Choice, [id number] 01/02/2021 08:21:55 01/02/20 21 01/02/2021 CT + [...] r if neede d. Conta ct phone zaheere r . Thera peuti c failu re or succe ss canno t be deter mined with the Aptim a Combo 2 assay since nucle ic acid may persi st follo wing appro priat e antim icrob ial thera py. The Cente rs for Disea se Contr ol and Preve ntion ([facility]) recom mends confi rmato ry retes ting using cultu re or a diffe rent nucle ic acid ampli ficat ion test when posit sonia resul ts occur , if indic ated. Not Available [facility] (Centralized Electronic Ordering - All Locations) Patient Can Go To The Location Of Their Choice, [facility] 01/02/2021 08:21:55 01/02/20 21 01/01/2021 CT + NG DNA, PCR, urine Specimen Colle marcus in office Not Available [facility] [address] [place] [address], [place], [address], 01/01/2021 09:18:07 Result Notes None recorded. Problems Name Problem SNOMED Code Status Onset Date Resolution Date Notes Provider Name and Address Organization Details Recorded Time Acne 73642331 Completed 10/12/2017 [facility] 8 09:50:56 Ankle pain 032586555 Completed 10/16/2015 [facility] 6 13:32:28 Learning difficulti es 503829533 Active 2016 [facility] 7 16:18:10 Obesity 513338277 Active 2017 [facility] 8 11:02:08 Cellulitis 238009417 Completed 200810/07/2011 Not Available [facility] 3 03:01:32 Viral disease 80734165 Completed 200710/07/2011 Not Available [facility] 3 03:01:32 Eruption 402061910 Completed 200710/07/2011 Not Available [facility] 3 03:01:32 Abnormal weight gain 230166067 Completed 200810/08/2017 [facility] 8 11:02:03 Allergic rhinitis 97490694 Active Not Available [facility] 3 03:01:32 Open wound 173049113 Completed 200710/07/2011 Not Available [facility] 3 03:01:32 Acute pharyngiti s 942482086 Completed 200610/07/2011 Not Available [facility] 3 03:01:32 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 76 g 120 mm[Hg] 68 mm[Hg] Maile Calloway R.N. [facility] 0 11:03:05 Date Recorded Body height Body mass index (BMI) Percentile per age and sex Body mass index (BMI) Body weight Systolic blood pressure Diastolic blood pressure Provider Name and Address Organization Details Last Updated DateTime 1 170.18 cm 98 % 34.4 kg/m2 08179.8 8 g 122 mm[Hg] 76 mm[Hg] Edyta Mcclure R.N. [facility] 1 09:20:57 Date Recorded Body height Body mass index (BMI) Body weight Systolic blood pressure Diastolic blood pressure Provider Name and Address Organization Details Last Updated DateTime 10/12/2017 169.55 cm 36.2 kg/m2 512044.4 5 g 114 mm[Hg] 70 mm[Hg] Ely davies M.A. [facility] 8 09:39:37 Date Recorded Body height Body mass index (BMI) Percentile per age and sex Body mass index (BMI) Body weight Systolic blood pressure Diastolic blood pressure Provider Name and Address Organization Details Last Updated DateTime 9 170.18 cm 99 % 37 kg/m2 192962. 52 g 120 mm[Hg] 70 mm[Hg] Cuca ortiz C.M.A. [facility] 9 09:44:25 Social History Question Answer Notes LastModified by Organizat ion Details LastModified Time Tobacco Smoking Status Never Smoker Cain Paredes, [facility] 01/05/2012 14:59:43 Parent's Marital Status [email or web address] Information not available 05/31/2011 Home Situation Both Parents [email or web address] Information not available 05/31/2011 Siblings Yayo 01/31/1997, Blanca 07/04/1998 [email or web address]_ [email or web address] Information not available 05/31/2011 Year In School [employer] Fall 2020 Information not available 10/03/2019 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 08/13/2019 02:34:46 Tdap 10/20/19 13 completed Not Available [facility] 08/13/2019 02:33:46 meningococcal [id number] 10/20/19 13 completed Not Available [facility] 08/13/2019 02:33:32 MMR 01/08/20 02 completed Not Available [facility] 12/22/2022 14:53:22 IPV 04/15/20 02 completed Not Available [facility] 12/22/2022 14:53:22 DTaP 04/15/20 02 completed Not Available [facility] 12/22/2022 14:53:22 Hep B, unspecified formulation 11/13/19 01 completed Not Available [facility] 12/22/2022 14:53:22 DTaP 10/15/19 06 completed Not Available [facility] 12/22/2022 14:53:22 Hep B, unspecified formulation 10/11/19 01 completed Not Available [facility] 12/22/2022 14:53:22 varicella 04/15/20 02 completed Not Available [facility] 12/22/2022 14:53:22 Hep B, unspecified formulation 06/30/20 01 completed Not Available [facility] 12/22/2022 14:53:22 Hib, unspecified formulation 04/29/20 01 completed Not Available [facility] 12/22/2022 14:53:22 IPV 10/15/19 06 completed Not Available [facility] 12/22/2022 14:53:22 DTaP 04/29/20 01 completed Not Available [facility] 12/22/2022 14:53:22 IPV 12/11/19 01 completed Not Available [facility] 12/22/2022 14:53:22 Hib, unspecified formulation 01/08/20 02 completed Not Available [facility] 12/22/2022 14:53:22 Hib, unspecified formulation 02/05/20 01 completed Not Available [facility] 12/22/2022 14:53:22 Hib, unspecified formulation 12/11/19 01 completed Not [facility] 12/22/2022 14:53:22 IPV 02/05/20 01 completed Not [facility] 12/22/2022 14:53:22 DTaP 02/05/20 01 completed Not Available [facility] 12/22/2022 14:53:22 MMR 10/05/19 05 completed Not Available [facility] 12/22/2022 14:53:22 DTaP 12/11/19 01 completed Not Available [facility] 12/22/2022 14:53:22 pneumococcal conjugate PCV 7 04/29/20 01 completed Not Available [facility] 12/22/2022 14:53:22 pneumococcal conjugate PCV 7 12/11/19 01 completed Not Available [facility] 12/22/2022 14:53:22 pneumococcal conjugate PCV 7 06/09/20 03 completed Not Available [facility] 12/22/2022 14:53:22 pneumococcal conjugate PCV 7 02/05/20 01 completed Not Available [facility] 12/22/2022 14:53:22 varicella 10/13/19 08 completed Not Available [facility] 12/22/2022 14:53:22 HPV9 10/17/19 16 completed Not Available [facility] 08/13/2019 02:36:40 HPV9 12/26/19 16 completed Not Available [facility] 08/13/2019 02:36:45 Influenza, injectable,julieta valent, preservative free, pediatric 06/26/20 16 completed Not Available [facility] 12/22/2022 14:53:22 HPV9 04/21/20 16 completed Not Available [facility] 08/13/2019 02:37:01 influenza, unspecified formulation 05/27/20 18 completed Not Available [facility] 12/22/2022 14:53:22 influenza, unspecified formulation 04/03/20 09 completed Not Available [facility] 12/22/2022 14:53:22 meningococcal MCV4P 10/13/19 18 completed Not Available [facility] 08/13/2019 02:38:13 meningococcal B, OMV 10/13/19 18 completed Not Available [facility] 08/13/2019 02:38:20 meningococcal B, OMV 10/12/19 19 completed Not [facility] 08/13/2019 02:38:53 Hep A, adult 10/03/19 20 cancelled patient objection Raimundo Vallecillo MD [address] [place] [address], [place], [address], [facility] 10/03/2019 11:15:30 Influenza, split virus, quadrivalent, PF 10/03/19 20 cancelled patient objection Raimundo Vallecillo MD [address] [place], [address], [facility] 10/03/2019 11:15:30 Novel [id number] , all formulations 06/06/20 09 completed Not Available [facility] 12/22/2022 14:53:22 influenza, unspecified formulation 06/29/20 07 completed Not Available [facility] 12/22/2022 14:53:22 Influenza, split virus, trivalent, preservative 04/17/20 10 completed Not Available [facility] 08/13/2019 02:35:05 Past Encounters Encounter ID Performer Location Encounter Start Date Encounter Closed Date Diagnosis/Indication Diagnosis SNOMED-CT Code Diagnosis ICD10 Code Diagnosis Note [id number] PVP Nerissaado w [address] [place] [address] [facility] [place] [address] 03/21/2007 11:58:27 03/21/2007 11:59:04 [id number] PVP Nerissaado w [address] [place], [place] [address] [place] [address] 06/29/2007 15:20:38 06/29/2007 15:58:38 [id number] PVP Nerissaado w [address] [place], [place] [address] [place] [address] 09/06/2007 16:33:31 09/06/2007 16:57:05 [id number] PVP Yulia w [address] [place] [address] [place] [address] 09/15/2007 11:40:17 09/15/2007 12:47:42 [id number] PVP Nerissaado w [address] [place] [address] [place] [address] 10/12/2007 15:09:42 10/12/2007 15:45:10 [id number] PVP Nerissaado w [address] [place] [address] [place] [address] 06/29/2008 14:39:59 04/05/2009 01:23:50 [id number] PVP Nerissaado w [address] [place] [address] [place] [address] 10/12/2008 15:32:52 10/12/2008 16:21:43 [id number] PVP Longmeado w [address] [place] [address] 11/20/2008 14:56:26 11/20/2008 15:31:22 [id number] PVP [facility] w [address] [place] [address] 01/29/2009 09:39:39 01/29/2009 10:31:59 [id number] PVP [facility] w [address] [place] [address] 04/03/2009 16:24:23 04/03/2009 17:25:07 [id number] P[facility] w [address] [place] [address] 07/04/2009 15:07:02 07/04/2009 17:17:54 [id number] P[facility] w [address] [place] [address] 10/15/2009 15:31:20 10/15/2009 16:51:40 [id number] P[facility] w [address] [place] [address] 02/04/2010 09:31:47 02/04/2010 09:57:01 [id number] PVP [facility] w [address] [place] [address] 04/03/2010 15:08:48 04/03/2010 15:53:28 [id number] PVP [facility] w [address] [place] [address] 10/03/2010 15:29:07 10/03/2010 16:45:36 [id number] PVP [facility] w [address] [place] [address] 10/07/2011 15:33:46 10/07/2011 16:22:18 [id number] PVP [facility] w [address] [place] [address] 01/05/2012 14:46:30 01/05/2012 15:42:38 [id number] Brianna Lezama [facility] [address] [place] [address] 10/19/2012 14:05:04 10/19/2012 16:15:19 [id number] Gini Flynn R.N. [facility] [address] [place] [address] 10/11/2013 09:37:48 10/11/2013 10:08:30 Well child 292744305 [id number] Ely Lainez M.A. [facility] [address] [place] [address] 10/23/2014 10:40:32 10/23/2014 11:12:29 Well child 231255925 Abnormal weight gain 847152202 Acne 51636729 [id number] Raimundo Vallecillo MD [facility] [address] [place] [address] 07/06/2015 15:15:16 07/06/2015 16:52:19 Ankle pain 097420391 M25.571 [id number] Juan Best [facility] [address] [place] [id number] 10/17/2015 09:30:40 10/17/2015 10:11:02 Well child 968439466 Z00.129 Active or passive immunization 101170238 Z23 Abnormal weight gain 161 059241 R63.5 Acne 01315022 L70.9 [id number] Juan Best [facility] [address] [address] 12/26/2015 14:20:25 12/26/2015 15:13:33 Active or passive immunization 231612616 Z23 Abnormal weight gain 161 299119 R63.5 [id number] Juan Best [address] [address] 01/23/2016 14:33:57 01/23/2016 14:59:09 Acne 34037838 L70.9 Abnormal weight gain 161 840710 R63.5 [id number] [place] PVP [address] [address] 03/26/2016 14:00:05 03/26/2016 14:38:12 Contact dermatitis due to plants, except food 34729342 L25.5 PI + accompaniy ing id reaction? has been on tiny dose of prednisone for 7 day taper (20 mg->5 mg) will use 40 mg as noted below and f/u PRN- hold on abx for acne until prednisone is completed [id number] Juan Best [address] [address] 04/21/2016 11:19:06 04/21/2016 12:00:40 Active or passive immunization 740992632 Z23 Acne 90023607 L70.9 Abnormal weight gain 161 733557 R63.5 [id number] Juna Best [address] [address] 09/29/2016 15:58:09 09/29/2016 16:43:30 Well child 500837741 Z00.121 Had flu vaccine at school. Obesity 559357573 E66.9 [id number] Juan Best [address] [address] 10/12/2017 09:34:27 10/12/2017 10:20:18 Well child 172847533 Z00.121 Had flu vaccine at school. Childhood obesity 278607 003 Z68.54 Active or passive immunization 773577048 Z23 Learning difficulties 16 4420887 F81.9 [id number] Raimundo Vallecillo MD [address] [address] 10/11/2018 09:36:10 10/11/2018 10:44:51 Active or passive immunization 302888420 Z23 Adult heal th examination 222763074 Z00.00 Obesity 195013819 E66.9 [id number] Raimundo Vallecillo MD [address] [address] 10/03/2019 10:45:31 10/03/2019 12:25:39 Active or passive immunization 358227352 Z23 Adult heal th examination 898498300 Z00.00 Increased body mass index 41232845 E66.3 [id number] Raimundo Vallecillo MD [address] [address] 01/01/2021 09:16:25 01/01/2021 11:27:49 Adult health examination 971022065 Z00.00 Diet education 71007447 Z71.3 Exercises education, guidance, and counseling 201603150 Z71.82 Increased body mass index 05468886 E66.3 [id number] Raimundo Vallecillo MD [facility] [address] [place] [address] 01/02/2022 16:27:34 01/02/2022 19:42:43 Upper respiratory infection 72353570 J06.9 Hematochezia 509339876 K 92.1 Health Concerns Section Related Observation LastModified by Organization Detai ls LastModified Time None Recorded Concern Status LastModified by Organization Details LastModified Time None Recorded Advance Directives Directive None Recorded Payers Encounter Date Sequence Insurance Name Policy Number Policy Rodriguez Covered Member ID Rodriguez Member ID Guarantor Name 10/12/2017 1 [place] [address] [employer] [employer] 4 (HMO) [id number] 1 Yayo Sam Andrea [id number] Yayo Sam Andrea 10/11/2018 1 [place] [address] [employer] 4 (HMO) [id number] 1 Yayo H Andrea [id number] Yayo H Andrea 10/03/2019 1 [place] [address] [employer]MO [employer] 4 (HMO) [id number] 1 Yayo H Andrea [id number] Yayo H Andrea 01/01/2021 1 [place] [address] [employer]MO [employer] 4 (HMO) [id number] 1 Yayo H Andrea [id number] Yayo H Andrea 01/02/2022 1 [place] [address] [employer]MO [employer] 4 (HMO) [id number] 1 Yayo H Andrea [id number] Yayo Palac[place]ier Notes Date Note Type Note Provider Name and Address Organization Details Recorded Time 10/03/2019 text/html No recent travel Raimundo Vallecillo MD [address] [place] [address], , [facility] 10/03/2019 12:25:10 01/01/2021 text/html No recent travel Raimundo Vallecillo MD [address] [place] [address], , [facility] 01/01/2021 11:27:19 01/02/2022 text/html RS Sick Visit Narrative HistoryReported bypatient.Notes:Here for bloody stools x 2 days. Last noc and this am. Usually has 2 bm's a day formed. Was in [place] 2 weekends ago and had a bad [...] the stool. nl stools Raimundo Vallecillo MD [address] [place] [address], [phone], [facility] 01/02/2022 19:42:13
--- OUTSIDE RECORDS SUMMARY | 2024-11-10 06:13 | XMS_ITS | Clinical Summary ---
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 10 mL Active Social History Tobacco Use Types Packs/Day Years Used Date Smoking Tobacco: Never Smokeless Tobacco: Current Tobacco Cessation:Ready to Q uit: Not Asked; Counseling Given: Not Answered Comments:Patient vapes Sex and Gender Information Value Date Recorded Sex Assigned at Male 10/06/2022 12:06 PM EDT Legal Sex Male 12:05 PM EDT Gender Identity Male 10/06/2022 12:06 [...] on patient's age to complete this topic Insurance [facility] Care Teams Tire Rebuilder Relationship Specialty Start Date End Date Pcp, No PCP - General General Medicine 10/06/22
[2024-11-10 10:09] LABS: MANUAL DIFF FLAG NO
[2024-11-10 10:19] LABS: Basophils Absolute Auto 0.1 X10*3/uL (0.0-0.2); Basophils Percent Auto 1.2 % (0-2); Eosinophils Absolute Auto 0.3 X10*3/uL (0.0-0.4); Eosinophils Percent Auto 4.2 % (0-4); Hematocrit 49.1 % (42.0-52.0); Hemoglobin 16.7 g/dl (14.0-18.0); Imm Gran Abs Auto 0.02 X10*3/uL (0.00-0.03); Imm Gran Pct Auto 0.3 % (0.0-0.4); Lymphocytes Percent Auto 33.6 % (20-40); Mean Corpuscular Hemoglobin 28.9 pg (27.0-33.0); Mean Corpuscular Volume 84.9 fL (80.0-98.0); Mean Platelet Volume 9.8 fL (9.4-12.4); Monocytes Absolute Auto 0.6 X10*3/uL (0.1-1.2); Monocytes Percent Auto 10.3 % (2-11); Neutrophils Percent Auto 50.4 % (45-73); Platelet Count 368 X10*3/uL (160-400); Red Blood Count 5.78 X10*6/uL (4.60-5.80); Red Cell Distribution Width 12.5 % (11.0-16.0); White Blood Count 5.9 X10*3/uL (4.8-10.8)
[2024-11-10 10:39] LABS: Anion Gap 12 (12-20)
[2024-11-10 10:45] LABS: Alanine Aminotransferase 36 U/L (0-40); Albumin Level 4.5 g/dL (3.5-5.0); Aspartate Amino Transferase 39 U/L (5-37); Bilirubin Total 1.4 mg/dL (0.0-1.0); Blood Urea Nitrogen 14 mg/dL (9-16); Calcium 9.7 mg/dL (8.4-10.2); Carbon Dioxide 26 mmol/L (22-29); Chloride 106 mmol/L (96-108); Cholesterol 203 mg/dL (<200); Estimated Glomerular Filt Rate > 60; Glucose Fasting 87 mg/dL (60-99); HDL Cholesterol 35 mg/dL (>40); LDL Cholesterol Calculated 139 mg/dL (<100); Potassium 4.4 mmol/L (3.3-5.1); Sodium 140 mmol/L (135-145); Total Protein 7.5 g/dL (6.5-8.0); Triglycerides 149 mg/dL (<150)
[2024-11-10 10:55] LABS: Appearance Urine Clear; Color Urine Yellow; Glucose Urine UA Negative (Negative); Leukocyte Esterase Urine Negative (Negative); Nitrite Urine Negative (Negative); PH 5.5 (5.0-9.0); Urine Blood Negative (Negative); Urine Ketones Negative (Negative); Urine Protein Negative (Neg-Trace)
[2024-11-10 11:02] LABS: Alkaline Phosphatase 61 U/L (39-117)
[2024-11-10 11:10] LABS: TSH reflex Free T4 1.14 uIU/mL (0.32-4.0); Vitamin D 25-OH Total 58.3 ng/mL (>30)
== END 2024-11-10 06:10 | disposition home or self-care (01) ==
LOC: HO.HMGCLDS 06:09
PROVIDERS: PCP Nurse Practitioner Family; Visit Provider Nurse Practitioner Family
DX: Z00.00 Encounter for general adult medical examination without abnormal findings (principal); Z13.6 Encounter for screening for cardiovascular disorders
CPT/HCPCS: 36415; 80053; 80061; 81003; 82306; 84443; 85025

== ENCOUNTER 2024-11-16 07:52 | Outpatient (AMB) | payer OTHER, SELFPAY ==
--- OUTSIDE RECORDS SUMMARY | 2024-11-16 07:55 | XMS_ITS | Data Portability ---
Author Organization [place] - [facility], [facility] Address [address] [place] [address] Assessment Encounter Date Assessment Date Assessment LastModified [...] NG DNA, PCR, urine 021 01/02/20 [facility] [address] [place] [address], [address], 06/08/202 1 10:24:04 CT + NG DNA, PCR, urine 020 10/03/19 [facility] (Centralized Electronic Ordering - All Locations), Patient Can Go To The Location Of Their Choice, [id number] 0 13:38:18 CT + NG DNA, PCR, urine 019 10/12/19 [facility], [address] [place] [address], [phone], 9 11:42:07 lipid panel, blood 018 10/13/19 [facility], [address] [place] [address], [place], [address], 8 10:08:58 glucose, QN [mass/vo lume], serum or plasma 018 10/13/19 [facility] ([facility] - [facility]ations), Patient Can Go To The Location Of Their Choice, [id number] 8 18:20:02 ALT (alanine aminotra nsferase ), serum or plasma 018 10/13/19 [facility] ([facility] - All Locations), Patient Can Go To The Location Of Their Choice, [id number] 8 18:20:01 Referral None recorded . Procedures None recorded . Surgeries None recorded . Imaging None recorded . Medication Orders None recorded . Patient TargetsNo targets recorded. Patient Instructions Encounter Date Encounter Id Patient Instructions Last Modified By Organization Details Last Modified Time 10/12/2017 [id number] patient health questionnaire modified for adolescents* Not available 10/12/2017 10:01:13 immunization: wh at you need to know Not available 10/12/2017 10:01:13 mom declines flu vaccine; life issues/balance/saf ety; george needs to embrace need for healthier eating and weight loss; hard thing to do and no easy solutions or tricks to accomplish Not available 10/12/2017 10:01:02 10/11/2018 [id number] Learning About H ow to Make Healthy [...] know jyunis Not available 10/11/2018 10:17:40 10/03/2019 [id number] program - 5 fruits & veggies jyunis Not available 10/03/2019 11:15:30 5210 program - 1 hour of exercise jyunis Not available 10/03/2019 11:15:30 patient health questionnaire depression assessment* ZHANE Not available 10/03/2019 11:20:19 immunization: wh at you need to know jyunis Not available 10/03/2019 11:15:30 01/01/2021 [id number] 1450 program - 5 fruits & veggies jyunis Not available 01/01/2021 09:35:00 5210 program - 1 hour of exercise jyunis Not available 01/01/2021 09:35:00 patient health questionnaire depression assessment* jyunis Not available 01/01/2021 09:35:00 immunization: wh at you need to know jyunis Not available 01/01/2021 09:35:00 01/02/2022 [id number] upper respirator y infection (cold): care instructions jyunis Not available 01/02/2022 19:42:09 Reason for Referral None Reported. Results Created Date Observation Date Name Description Value Unit Range Abnormal Flag Note LastModifiedBy Organization Detail LastModifiedTime 01/02/20 21 01/01/2021 patie nt healt h quest ionna lorena depre ssion asses sment * PHQ-9 negati ve Not Available [facility] [address] [place] [address], [address], 01/01/2021 09:18:06 10/12/19 19 10/11/2018 patie nt healt h quest ionna lorena depre ssion asses sment * PHQ-9 negati ve Not Available [facility] [address] [place], [address], 10/11/2018 09:39:09 10/13/19 18 10/12/2017 patie nt healt h quest jac carrillo modif ied for adole scent s* PHQ-9 negati ve Not Available [facility] [address] [place], [address], 10/12/2017 09:36:15 10/17/19 18 10/16/2017 ALT (omero [...] Go To The Location Of Their Choice, [id number] 10/16/2017 18:20:03 10/17/19 18 10/16/2017 lipid panel , serum non HDL cholesterol (calc) 130 mg/dL (<120) high Not Available [facility] (Centralized Electronic Ordering - All Locations) Patient Can Go To The Location Of Their Choice, [id number] 10/16/2017 18:20:03 10/12/19 19 10/12/2018 CT + [...] Go To The Location Of Their Choice, [id number] 10/12/2018 13:45:25 10/12/19 19 10/12/2018 CT + [...] Disea se Contr ol and Preve ntion ([facility]) recom mends confi rmato ry retes ting using cultu re or a diffe rent nucle ic acid ampli ficat ion test when posit sonia resul ts occur , if indic ated. Not Available [facility] (Centralized Electronic Ordering - All Locations) Patient Can Go To The Location Of Their Choice, [id number] 10/12/2018 13:45:25 10/03/1910/04/2019 CT + NG DNA, [...] Go To The Location Of Their Choice, [address] 10/04/2019 13:38:18 10/03/1910/04/2019 CT + NG DNA, [...] neede d. Conta ct phone numbe r [phone]. Thera peuti c failu re or succe ss canno t be deter mined with the Aptim a Combo 2 assay since nucle ic acid may persi st follo wing appro priat e antim icrob ial thera py. The Cente rs for Disea se Contr ol and Preve ntion ([facility]) recom mends confi rmato ry retes ting using cultu re or a diffe rent nucle ic acid ampli ficat ion test when posit sonia resul ts occur , if indic ated. Not Available [facility] (Centralized Electronic Ordering - All Locations) Patient Can Go To The Location Of Their Choice, [id number] 10/04/2019 13:38:18 10/03/19 20 10/03/2019 patie nt healt h quest ionna lorena depre ssion asses sment * PHQ-9 negati ve Not Available [facility] [address] [facility], [place], [address], 10/03/2019 10:57:39 01/02/2001/02/2021 CT + NG DNA, [...] Go To The Location Of Their Choice, [id number] 01/02/2021 08:21:55 01/02/20 21 01/02/2021 CT + [...] Disea se Contr ol and Preve ntion ([facility]) recom mends confi rmato ry retes ting using cultu re or a diffe rent nucle ic acid ampli ficat ion test when posit sonia resul ts occur , if indic ated. Not Available [facility] (Centralized Electronic Ordering - All Locations) Patient Can Go To The Location Of Their Choice, [facility] 01/02/2021 08:21:55 01/02/20 21 01/01/2021 CT + NG DNA, PCR, urine Specimen Colle marcus in office Not Available [facility] [address] [place] [address], [place], [address], 01/01/2021 09:18:07 Result Notes None recorded. Problems Name Problem SNOMED Code Status Onset Date Resolution Date Notes Provider Name and Address Organization Details Recorded Time Acne 11163965 Completed 10/12/2017 [facility] 8 09:50:56 Ankle pain 940548462 Completed 10/16/2015 [facility] 6 13:32:28 Learning difficulti es 480440856 Active 2016 [facility] 7 16:18:10 Obesity 743831867 Active 2017 [facility] 8 11:02:08 Cellulitis 400508337 Completed 200810/07/2011 Not Available [facility] 3 03:01:32 Viral disease 53240658 Completed 200710/07/2011 Not Available [facility] 3 03:01:32 Eruption 968667877 Completed 200710/07/2011 Not Available [facility] 3 03:01:32 Abnormal weight gain 777203717 Completed 200810/08/2017 [facility] 8 11:02:03 Allergic rhinitis 75525937 Active Not Available [facility] 3 03:01:32 Open wound 625147853 Completed 200710/07/2011 Not Available [facility] 3 03:01:32 Acute pharyngiti s 035952800 Completed 200610/07/2011 Not Available [facility] 3 03:01:32 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 76 g 120 mm[Hg] 68 mm[Hg] Maile Calloway R.N. [facility] 0 11:03:05 Date Recorded Body height Body mass index (BMI) Percentile per age and sex Body mass index (BMI) Body weight Systolic blood pressure Diastolic blood pressure Provider Name and Address Organization Details Last Updated DateTime 1 170.18 cm 98 % 34.4 kg/m2 45945.8 8 g 122 mm[Hg] 76 mm[Hg] Edyta Mcclure R.N. [facility] 1 09:20:57 Date Recorded Body height Body mass index (BMI) Body weight Systolic blood pressure Diastolic blood pressure Provider Name and Address Organization Details Last Updated DateTime 10/12/2017 169.55 cm 36.2 kg/m2 203698.4 5 g 114 mm[Hg] 70 mm[Hg] Ely davies M.A. [facility] 8 09:39:37 Date Recorded Body height Body mass index (BMI) Percentile per age and sex Body mass index (BMI) Body weight Systolic blood pressure Diastolic blood pressure Provider Name and Address Organization Details Last Updated DateTime 9 170.18 cm 99 % 37 kg/m2 001744. 52 g 120 mm[Hg] 70 mm[Hg] Cuca ortiz C.M.A. 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 Information not available 10/17/2015 Parent's Name Yayo [...] completed Not Available [facility] 08/13/2019 02:35:17 Novel [id number] 07/04/20 09 completed Not Available [facility] 08/13/2019 02:34:46 Tdap 10/20/19 13 completed Not Available [facility] 08/13/2019 02:33:46 meningococcal [id number] 10/20/19 13 completed Not Available [facility] 08/13/2019 02:33:32 MMR 01/08/20 02 completed Not Available [facility] 12/22/2022 14:53:22 IPV 04/15/20 02 completed Not Available [facility] 12/22/2022 14:53:22 DTaP 04/15/20 02 completed Not Available [facility] 12/22/2022 14:53:22 Hep B, unspecified formulation 11/13/19 01 completed Not Available [facility] 12/22/2022 14:53:22 DTaP 10/15/19 06 completed Not Available [facility] 12/22/2022 14:53:22 Hep B, unspecified formulation 10/11/19 01 completed Not Available [facility] 12/22/2022 14:53:22 varicella 04/15/20 02 completed Not Available [facility] 12/22/2022 14:53:22 Hep B, unspecified formulation 06/30/20 01 completed Not Available [facility] 12/22/2022 14:53:22 Hib, unspecified formulation 04/29/20 01 completed Not Available [facility] 12/22/2022 14:53:22 IPV 10/15/19 06 completed Not Available [facility] 12/22/2022 14:53:22 DTaP 04/29/20 01 completed Not Available [facility] 12/22/2022 14:53:22 IPV 12/11/19 01 completed Not Available [facility] 12/22/2022 14:53:22 Hib, unspecified formulation 01/08/20 02 completed Not Available [facility] 12/22/2022 14:53:22 Hib, unspecified formulation 02/05/20 01 completed Not Available [facility] 12/22/2022 14:53:22 Hib, unspecified formulation 12/11/19 01 completed Not Available [facility] 12/22/2022 14:53:22 IPV 02/05/20 01 completed Not Available [facility] 12/22/2022 14:53:22 DTaP 02/05/20 01 completed Not Available [facility] 12/22/2022 14:53:22 MMR 10/05/19 05 completed Not Available [facility] 12/22/2022 14:53:22 DTaP 12/11/19 01 completed Not Available [facility] 12/22/2022 14:53:22 pneumococcal conjugate PCV 7 04/29/20 01 completed Not Available [facility] 12/22/2022 14:53:22 pneumococcal conjugate PCV 7 12/11/19 01 completed Not Available [facility] 12/22/2022 14:53:22 pneumococcal conjugate PCV 7 06/09/20 03 completed Not Available [facility] 12/22/2022 14:53:22 pneumococcal conjugate PCV 7 02/05/20 01 completed Not Available [facility] 12/22/2022 14:53:22 varicella 10/13/19 08 completed Not Available [facility] 12/22/2022 14:53:22 HPV9 10/17/19 16 completed Not Available [facility] 08/13/2019 02:36:40 HPV9 12/26/19 16 completed Not Available [facility] 08/13/2019 02:36:45 Influenza, injectable,julieta valent, preservative free, pediatric 06/26/20 16 completed Not Available [facility] 12/22/2022 14:53:22 HPV9 04/21/20 16 completed Not Available [facility] 08/13/2019 02:37:01 influenza, unspecified formulation 05/27/20 18 completed Not Available [facility] 12/22/2022 14:53:22 influenza, unspecified formulation 04/03/20 09 completed Not Available [facility] 12/22/2022 14:53:22 meningococcal MCV4P 10/13/19 18 completed Not Available [facility] 08/13/2019 02:38:13 meningococcal B, OMV 10/13/19 18 completed Not Available [facility] 08/13/2019 02:38:20 meningococcal B, OMV 10/12/19 19 completed Not Available [facility] 08/13/2019 02:38:53 Hep A, adult 10/03/19 20 cancelled patient objection Raimundo Vallecillo MD [address] [place] [address], [place], [address], [facility] 10/03/2019 11:15:30 Influenza, split virus, quadrivalent, PF 10/03/19 20 cancelled patient objection Raimundo Vallecillo MD [address] [place], [address], [facility] 10/03/2019 11:15:30 Novel [id number] , all formulations 06/06/20 09 completed Not Available [facility] 12/22/2022 14:53:22 influenza, unspecified formulation 06/29/20 07 completed Not Available [facility] 12/22/2022 14:53:22 Influenza, split virus, trivalent, preservative 04/17/20 10 completed Not Available [facility] 08/13/2019 02:35:05 Past Encounters Encounter ID Performer Location Encounter Start Date Encounter Closed Date Diagnosis/Indication Diagnosis SNOMED-CT Code Diagnosis ICD10 Code Diagnosis Note [id number] PVP Nerissaado w [address] [place] [address] [facility] [place] [address] 03/21/2007 11:58:27 03/21/2007 11:59:04 [id number] PVP Nerissaado w [address] [place], [place] [address] [place] [place] [address] 06/29/2007 15:20:38 06/29/2007 15:58:38 [id number] PVP Nerissaado w [address] [place], [place] [address] [place] [place] [address] 09/06/2007 16:33:31 09/06/2007 16:57:05 [id number] PVP Yulia w [address] [place] [address] [place] [address] 09/15/2007 11:40:17 09/15/2007 12:47:42 [id number] PVP Nerissaado w [address] [place] [address] [place] [address] 10/12/2007 15:09:42 10/12/2007 15:45:10 [id number] PVP Nerissaado w [address] [place] [address] [place] [address] 06/29/2008 14:39:59 04/05/2009 01:23:50 [id number] PVP Nerissaado w [address] [place] [address] [place] [address] 10/12/2008 15:32:52 10/12/2008 16:21:43 [id number] PVP [place] w [address] [place] [address] 11/20/2008 14:56:26 11/20/2008 15:31:22 [id number] PVP [place] w [address] [place] [address] 01/29/2009 09:39:39 01/29/2009 10:31:59 [id number] PVP [place] w [address] [place] [address] 04/03/2009 16:24:23 04/03/2009 17:25:07 [id number] PVP [place] w [address] [place] [address] 07/04/2009 15:07:02 07/04/2009 17:17:54 [id number] PVP [place] w [address] [place] [address] 10/15/2009 15:31:20 10/15/2009 16:51:40 [id number] PVP [place] w [address] [place] [address] 02/04/2010 09:31:47 02/04/2010 09:57:01 [id number] PVP [place] w [address] [place] [address] 04/03/2010 15:08:48 04/03/2010 15:53:28 [id number] PVP [place] w [address] [place] [address] 10/03/2010 15:29:07 10/03/2010 16:45:36 [id number] PVP [place] w [address] [place] [address] 10/07/2011 15:33:46 10/07/2011 16:22:18 [id number] PVP [place] w [address] [place] [address] 01/05/2012 14:46:30 01/05/2012 15:42:38 [id number] Brianna Lezama [facility] w [address] [place] [address] 10/19/2012 14:05:04 10/19/2012 16:15:19 [id number] Gini Flynn R.N. [facility] w [address] [place] [id number] 10/11/2013 09:37:48 10/11/2013 10:08:30 Well child [id number] Ely Lainez M.A. [facility] [address] [place] [address] 10/23/2014 10:40:32 10/23/2014 11:12:29 Well child 056425209 Abnormal weight gain 474585390 Acne 53766501 [id number] Raimundo Vallecillo MD [facility] [address] [place] [id number] 07/06/2015 15:15:16 07/06/2015 16:52:19 Ankle pain 370565617 M25.571 [id number] Juan Best [facility] w [address] [place] [address] 10/17/2015 09:30:40 10/17/2015 10:11:02 Well child 795206619 Z00.129 Active or passive immunization 385699582 Z23 Abnormal weight gain 161 138761 R63.5 Acne 34797675 L70.9 [id number] Juan Best [facility] [address] 12/26/2015 14:20:25 12/26/2015 15:13:33 Active or passive immunization 031789139 Z23 Abnormal weight gain 161 622036 R63.5 [id number] Juan Best [address] [address] 01/23/2016 14:33:57 01/23/2016 14:59:09 Acne 44545014 L70.9 Abnormal weight gain 161 342591 R63.5 [id number] [place] PVP [address] [address] 03/26/2016 14:00:05 03/26/2016 14:38:12 Contact dermatitis due to plants, except food 29463272 L25.5 PI + accompaniy ing id reaction? has been on tiny dose of prednisone for 7 day taper (20 mg->5 mg) will use 40 mg as noted below and f/u PRN- hold on abx for acne until prednisone is completed [id number] Juan Best [address] [address] 04/21/2016 11:19:06 04/21/2016 12:00:40 Active or passive immunization 072852368 Z23 Acne 66014970 L70.9 Abnormal weight gain 161 768630 R63.5 [id number] Juan Best [address] [address] 09/29/2016 15:58:09 09/29/2016 16:43:30 Well child 602205693 Z00.121 Had flu vaccine at school. Obesity 876658236 E66.9 [id number] Juan Best [address] [address] 10/12/2017 09:34:27 10/12/2017 10:20:18 Well child 001057283 Z00.121 Had flu vaccine at school. Childhood obesity 373602 003 Z68.54 Active or passive immunization 680198104 Z23 Learning difficulties 16 3498168 F81.9 [id number] Raimundo Vallecillo MD [address] [address] 10/11/2018 09:36:10 10/11/2018 10:44:51 Active or passive immunization 376118564 Z23 Adult heal th examination 766771570 Z00.00 Obesity 048665800 E66.9 [id number] Raimundo Vallecillo MD [address] [address] 10/03/2019 10:45:31 10/03/2019 12:25:39 Active or passive immunization 219977695 Z23 Adult heal th examination 602598183 Z00.00 Increased body mass index 12867024 E66.3 [id number] Raimundo Vallecillo MD [address] [address] 01/01/2021 09:16:25 01/01/2021 11:27:49 Adult health examination 421948373 Z00.00 Diet education 15819334 Z71.3 Exercises education, guidance, and counseling 134052862 Z71.82 Increased body mass index 51259127 E66.3 [id number] Raimundo Vallecillo MD [facility] [place] [address] 01/02/2022 16:27:34 01/02/2022 19:42:43 Upper respiratory infection 41935740 J06.9 Hematochezia 651609819 K 92.1 Health Concerns Section Related Observation LastModified by Organization Detai ls LastModified Time None Recorded Concern Status LastModified by Organization Details LastModified Time None Recorded Advance Directives Directive None Recorded Payers Encounter Date Sequence Insurance Name Policy Number Policy Rodriguez Covered Member ID Rodriguez Member ID Guarantor Name 10/12/2017 1 [place] [id number] [employer] 4 (HMO) [id number] 1 Yayo Sam Andrea [id number] Yayo Sam Andrea 10/11/2018 1 [place] [address] [employer] 4 (HMO) [id number] 1 Yayo H Andrea [id number] Yayo H Andrea 10/03/2019 1 [place] [address] [employer] 4 (HMO) [id number] 1 Yayo H Andrea [id number] Yayo H Andrea 01/01/2021 1 [place] [address] [employer] 4 (HMO) [id number] 1 Yayo H Andrea [id number] Yayo H Andrea 01/02/2022 1 [place] [address] [employer] [employer] 4 (HMO) [id number] 1 Yayo H Andrea [id number] Yayo Palaciosier Notes Date Note Type Note Provider Name and Address Organization Details Recorded Time 10/03/2019 text/html No recent travel Raimundo Vallecillo MD [address] [place] [address], , [facility] 10/03/2019 12:25:10 01/01/2021 text/html No recent travel Raimundo Vallecillo MD [address] [place] [address], , [facility] 01/01/2021 11:27:19 01/02/2022 text/html RS Sick Visit Narrative HistoryReported bypatient.Notes:Here for bloody stools x 2 days. Last noc and this am. Usually has 2 bm's a day formed. Was in [place] 2 weekends ago and had a bad [...] the stool. nl stools Raimundo Vallecillo MD [address] [place] [address], [phone], [facility] 01/02/2022 19:42:13
--- OUTSIDE RECORDS SUMMARY | 2024-11-16 07:55 | XMS_ITS | Patient Health Record ---
Author Organization [facility] Address [address] [place] [address] Care Team Providers Care Oracle Reports Developer Name Role Phone NO PCP, NO PCP [...] Insured Coverage Start Date Coverage End Date [facility] [address] [place] [address] [phone] [id number] Yayo Mendez Child - Insured has Financial Responsibility Medical (General) History Surgical History Surgery Date(Month/Year) [place] teeth
--- OUTSIDE RECORDS SUMMARY | 2024-11-16 07:56 | XMS_ITS | Clinical Summary ---
Author Organization [facility] Address [address] [place] [address] Care Team Providers Care Tool/Die Maker Name Role Phone Pcp, No Primary Care Provider Unavailabl e Allergies No known active allergies Medications neomycin-polymy virgie-hydrocortis one (CORTISPORIN) [id number] otic suspensionIndic ations:Otalgia, right Administer 4 drops [...] patient's age to complete this topic Insurance [facility] Care Teams Tool/Die Maker Relationship Specialty Start Date End Date Pcp, No PCP - General General Medicine 10/06/22
[2024-11-16 08:00] VITALS: BP 130/70; PULSE 84; RESP 16; TEMP 36.8; O2SAT 97; BMI 38.4
--- NOTE | 2024-11-16 08:00 | A.OFFPC_ITS ---
Vital Signs 11/16/24 08:00 Height 5 ft 7 in Weight 245 lb BMI 38.4 BP 130/70 Blood Pressure Location Lt brachial Position Sitting Respiration 16 Pulse 84 Pulse Source Pulse Oximeter Temp 98.3 F Temp Source Oral Pulse Oximetry (%) 97 Oxygen Delivery Method Room Air Intake Visit Reasons: PE w/ labs Intake Note: Pt is here today for his PE Allergies No Known Allergies Allergy (Verified 11/16/24 08:00) Medication List - Last Reconciled 11/16/24 by KOFFI Greer No Known Home Meds Tobacco use date assessed: 11/16/24 Dental Screening Dental Screen Date: 11/16/24 Did you have a dental visit in the last 12 months?: Yes Did you have a dental problem in the last 6 months where you did not have access to dental care?: No Was dental information given to patient?: Patient has dentist HPI PE w/ labs HPI Details History of Present Illness The patient is a 24-year-old male presenting for a wellness examination primarily focusing on the management of hypercholesterolemia and evaluation of liver enzyme abnormalities. The patient had recent laboratory testing, revealing elevated cholesterol levels, and a subsequent plan was made to address the importance of dietary modifications in controlling cholesterol. An elevated AST level, documented at 39 IU/L, also requires further exploration for potential liver pathology. During the visit, the patient denies experiencing cardiovascular symptoms, digestive system complaints, urinary disturbances, or skin rashes. There is no evidence of any psychological distress that could indicate suicidality or homicidal tendencies. Health Maintenance - Discussion regarding the importance of dietary changes to manage cholesterol levels. - Plans for repeat lipid panel in two mo [facility] to assess cholesterol management progress. - Arranged for a hepatitis screening to evaluate potential causes of elevated AST. - Scheduled an abdominal ultrasound to i nvestigate elevated AST and assess liver health. Social History Review of Systems - Cardiovascular: Denies chest pain, tamara rtness of breath. - Gastrointestinal: Denies abdominal trav n, blood in stool, constipation, diarrhea. - Genitourinary: Denies any urinary issu es. - Dermatological: Denies rashes. - Neurological/Psychiatric: Denies suici rk ideation, homicidal ideation. Physical Exam General: Cooperative, healthy appearing, comfortable, no acute distress and well developed Orientation: Patient oriented x3 Limitations: No limitations Head: Normal to inspection Ears: Hearing grossly normal bilaterally Nose: Normal external nose present Face and sinus: Normal facial exam Eyes: Appearance normal, both eyes and all related structures Neck: Normal visual inspection and Yes full ROM Respiratory: Normal respiratory effort and able to speak in complete sentences. Clear to auscultation bilaterally Cardiovascular: Regular rate and rhythm. Normal S1 and S2 GI: Normal to inspection. Soft to palpation and nontender Skin: No rashes or lesions noted Neuro: Patient oriented x3 Extremities: Normal to inspection Results - Labs: Slightly elevated cholesterol le vels. - Labs: Elevated AST at 39 IU/L. Plan For this visit, I focused on managing the patient's elevated cholesterol and liver enzyme levels. We discussed the necessity of dietary changes to control cholesterol, and I recommended retesting the lipid levels in two months. Given the elevated AST, I planned further investigations including a hepatitis screening and an abdominal ultrasound to rule out underlying liver pathologies. This plan aims to identify potential issues early and ensure effective management of any discovered conditions through appropriate follow-up and lifestyle modifications. Discussion Notes I thoroughly discussed with the patient the potential implications of elevated cholesterol levels and the benefits of dietary modifications for long-term health improvement. The importance of repeating the lipid profile in two months was emphasized for gauging treatment progress. For the elevated AST, I explained the rationale for conducting a hepatitis screen and an abdominal ultrasound, highlighting that these procedures aim to uncover possible underlying liver concerns that may require attention. The patient was advised on the necessity to follow up on test results and adhere to lifestyle adjustments discussed during this visit. Patient Instructions - Follow a heart-healthy diet to manage cholesterol levels. - Return in two months for follow-up lip id tests. - Complete scheduled hepatitis screen an d abdominal ultrasound as planned. - Report any new symptoms such as abdomi nal pain or yellowing of the skin immediately. - Maintain regular follow ups as advised . [facility] Surgical History [place] teeth removed Family History Maternal Uncle Substance use disorder Paternal Uncle Substance use disorder Social History Housing: House Patient Tobacco Use Status: Former Tobacco user e-Cigarette/Vaping Use: Former Use Second Hand Smoke Exposure: No service: No Current occupational status: employed Current occupation: [employer] Current occupational exposures/hazards: No Cognitive needs: No Hearing needs: No Vision needs: No Questionnaire PHQ-9 Over the last 2 weeks, how often have you been bothered by any of the following problems? 1. Little interest or pleasure in doing things: not at all 2. Feeling down, depressed, or hopeless: not at all 3. Trouble falling or staying asleep, or sleeping too much: not at all 4. Feeling tired or having little energy: not at all 5. Poor appetite or overeating: not at all 6. Feeling bad about yourself - or that you are a failure or have let yourself or your family down: not at all 7. Trouble concentrating on things, such as reading the newspaper or watching television: not at all 8. Moving or speaking so slowly that other people could have noticed. Or the opposite - being so fidgety or restless that you have been moving around a lot more than usual: not at all 9. Thoughts that you would be better off or of hurting yourself in some way: not at all Total score: 0 Depression Screening Interpretation: Negative Depression Screening Done: Yes 47667 - PHQ-9 Billing: Yes Source: Developed by Drs. Moses Vera, Rupal Edge, Kai Ribera and colleagues, with an educational stephie from [employer]. Thrive Questionnaire Date Thrive assessed: 11/14/24 I am a: Patient What is your living situation today?: I have a steady place to live Within the past 12 months, did the food you bought not last and you didn't have the money to get more?: Never true Within the past 12 months, did you worry whether your food would run out before you got money to buy more?: Never true Do you have trouble paying for medicines?: No Do you have trouble getting transportation to medical appointments?: No Do you have trouble paying your heating and electricity bill?: No Do you have trouble taking care of your child, family member or friend?: No Do you have trouble with day-to-day activities such as bathing, preparing meals, shopping, managing finances, etc.?: No Are you currently unemployed and looking for a job?: No Are you interested in more education?: No Please select the resources that you would like help with: None Currently or been in a relationship where the following occur: No concerns reported THRIVE Score: 0 AUDIT C Alcohol Use Questionnaire (AUDIT-C) 1. How often do you have a drink containing alcohol?: 2-4 times a month 2. How many drinks containing alcohol do you have on a typical day when you are drinking?: 1 or 2 3. How often do you have six or more drinks on one occasion?: Less than monthly Total Score: 3 Score Reviewed/Action Taken: Yes DYLON-7 AMB Questionnaire DYLON-7 Date DYLON - 7 assessed: 11/16/24 Feeling nervous, anxious, or on edge: 0 = Not at all Not being able to stop or control worryin = Not at all Worrying too much about different things: 0 = Not at all Trouble relaxin = Not at all Being so restless that it is hard to sit still: 0 = Not at all Becoming easily annoyed or irritable: 0 = Not at all Feeling afraid as if something awful might happen: 0 = Not at all Total DYLON-7 score (0-4 normal; 5-9 mild; 10-14 moderate; 15-21 severe): 0 Source: Developed by Drs. Moses Vera, Rupal Edge, Kai Ribera and colleagues, with an educational stephie from [employer]. DYLON-7 Assessment Billing DYLON-7 Assessment Tool: DYLON-7 Assessment 00585 Physical exam (Primary Care) Vital Signs: Last Vital Signs Temp 98.3 F 11/16/24 08:00 Pulse 84 11/16/24 08:00 Resp 16 11/16/24 08:00 BP 130/70 11/16/24 08:00 Pulse Ox 97 11/16/24 08:00 Oxygen Delivery Method Room Air 11/16/24 08:00 BMI result Body Mass Index 38.4 Tobacco/Smoking Status: Tobacco use Status Tobacco use date assessed 11/16/24 11/16/24 08:05 Patient Tobacco Use Status Former Tobacco user 11/16/24 08:05 e-Cigarette/Vaping Use Former Use 11/16/24 08:05 PHQ-9: PHQ-9 Score PHQ-9: Total score 0 11/16/24 08:05 Depression Screening Interpretation: Negative Thrive Assessment: Date of Thrive Assessment Date Thrive assessed 11/14/24 11/16/24 08:05 Currently or been in a relationship where the following occur: No concerns reported Coding Level of Care Code Est Pt Prev Care 18-39y(20847) Diagnoses Elevated liver enzymes R74.8 Additional Codes PHQ-9 - 89543 - PHQ-9 Billing: Yes ([id number]) DYLON-7 Assessment Billing - DYLON-7 Assessment Tool: DYLON-7 Assessment 65335 ([id number]) Assessment & Plan Assessment & Plan (1) Elevated liver enzymes: Code(s): R74.8 - Abnormal levels of other serum enzymes Category: Medical Plan . Orders: Orders Lipid Panel 11/10/24 Z00.00 - Encounter for general adult medical examination without abnormal findings Vitamin D 25-OH Total 11/10/24 Z00.00 - Encounter for general adult medical examination without abnormal findings Lipid Panel 2 Months R74.8 - Abnormal levels of other serum enzymes Complete Blood Count Auto Diff 11/10/24 Z00.00 - Encounter for general adult medical examination without abnormal findings Comprehensive [place]. Panel Fast 11/10/24 Z00.00 - Encounter for general adult medical examination without abnormal findings TSH reflex Free T4 11/10/24 Z00.00 - Encounter for general adult medical examination without abnormal findings UA CC w/rflx Micro + Cult 11/10/24 Z00.00 - Encounter for general adult medical examination without abnormal findings Hepatitis A,B,C Profile 2 Months R74.8 - Abnormal levels of other serum enzymes US abdomen complete Today R74.8 - Abnormal levels of other serum enzymes
== END 2024-11-16 08:49 | disposition home or self-care (01) ==
LOC: HO.HMCC 07:52
PROVIDERS: PCP Nurse Practitioner Family; Visit Provider Nurse Practitioner Family
DX: Z00.00 Encounter for general adult medical examination without abnormal findings (principal); R74.8 Abnormal levels of other serum enzymes

== ENCOUNTER → 2024-11-16 07:52 | Outpatient (BNVA) | payer OTHER, SELFPAY | PROVIDERS: PCP Nurse Practitioner Family; Visit Provider Nurse Practitioner Family | DX: Z00.00 Encounter for general adult medical examination without abnormal findings (principal); R74.8 Abnormal levels of other serum enzymes | CPT/HCPCS: 96127 ==